=== PATIENT | male | born 1970 | race African-American/Black ===

== ENCOUNTER 2016-02-14 13:55 | Inpatient (IN) | payer OTHER ==
[2016-02-14 14:16] VITALS: BMI 25.8
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
[2016-02-14] MEDS ORDERED: chlordiazePOXIDE HCL 25 MG CAPSULE PO ONE (15:38)
[2016-02-14] MEDS ORDERED: chlordiazePOXIDE HCL 25 MG CAPSULE PO PRN (15:38)
[2016-02-14] MEDS ORDERED: hydrOXYzine PAMOATE 25 MG CAPSULE (FP) PO PRN (15:39)
[2016-02-14] MEDS ORDERED: MENTHOL/PHENOL 1 EACH UD MM PRN (15:39)
[2016-02-14] MEDS ORDERED: ACETAMINOPHEN 325 MG TABLET (FP) PO PRN (15:39)
[2016-02-14] MEDS ORDERED: MAGNESIUM HYDROX 2400MG/30ML ORAL SUSPENSION 30 ML CUP PO PRN (15:39)
[2016-02-14] MEDS ORDERED: MAGNESIUM CITRATE 300 ML BOTTLE PO PRN (15:39)
[2016-02-14] MEDS ORDERED: MAG HYDROX/AL HYDROX/SIMETH 30 ML UNIT-DOSE CUP PO PRN (15:39)
[2016-02-14] MEDS ORDERED: P-EPHED 60MG/TRIPROLIDI 2.5MG TABLET PO PRN (15:39)
[2016-02-14] MEDS ORDERED: LOPERAMIDE HCL 2 MG CAPSULE PO PRN (15:39)
[2016-02-14] MEDS ORDERED: IBUPROFEN 400 MG TABLET (FP) PO PRN (15:39)
[2016-02-14] MEDS ORDERED: guaiFENesin/D-METHORPHAN HB 10 ML UNIT-DOSE CUPS PO PRN (15:39)
[2016-02-14] MEDS: chlordiazePOXIDE HCL 25 MG CAPSULE PO SCH ×2 (16:47→22:47)
[2016-02-14] MEDS: NICOTINE 21 MG/24 HOURS TOPICAL PATCH TD SCH (16:49)
[2016-02-14 18:53] LABS: URINE APPEARANCE CLEAR; URINE BILIRUBIN NEGATIVE (NEGATIVE); URINE BLOOD NEGATIVE (NEGATIVE); URINE COLOR YELLOW; URINE GLUCOSE (UA) NEGATIVE (NEGATIVE); URINE KETONE NEGATIVE (NEGATIVE); URINE LEUK ESTERASE NEGATIVE (NEGATIVE); URINE NITRITE NEGATIVE (NEGATIVE); URINE PROTEIN NEGATIVE (NEGATIVE); URINE UROBILINOGEN 4.0 E.U/dl E.U./dl (0.2-1.0)
[2016-02-14] MEDS: THIAMINE HCL 100 MG TABLET (FP) PO SCH (22:46)
[2016-02-14] MEDS: diphenhydrAMINE HCL 50 MG CAPSULE PO PRN (22:47)
[2016-02-15] MEDS: chlordiazePOXIDE HCL 25 MG CAPSULE PO SCH ×4 (06:06→22:22)
[2016-02-15 10:10] LABS: MEAN CELL VOLUME 102.9 fl (80-96); MEAN PLT VOLUME 9.9 fl (7.5-11.1); PLATELET COUNT 95 K/MM3 (134-434); RDW 14.3 % (11.9-15.9); WHITE BLOOD COUNT 3.8 K/mm3 (4.0-10.0)
[2016-02-15 10:29] LABS: ALBUMIN 2.6 g/dl (3.4-5.0); ALK PHOS 223 U/L (45-117); ANION GAP 8 (8-16); CALCIUM 8.2 mg/dL (8.5-10.1); CO2 28 mmol/L (21-32); CREATININE 0.8 mg/dL (0.7-1.3); GLUCOSE,RANDOM 88 mg/dL (74-106); SGOT/AST 47 U/L (15-37); SGPT/ALT 33 U/L (12-78); TOT PROT 6.4 g/dl (6.4-8.2)
[2016-02-15] MEDS: PRENATAL VITAMINS W/ FOLIC ACID TABLET (FP) PO SCH (10:42)
[2016-02-15] MEDS: EMTRICITAB/RILPIVIRINE/TENOFOV 1 EACH TABLET PO SCH (10:43)
[2016-02-15] MEDS: NICOTINE 21 MG/24 HOURS TOPICAL PATCH TD SCH (10:44)
--- NOTE | 2016-02-15 11:32 | PN ---
[facility] CIWA - CIWA Score Nausea/Vomitin-No Nausea/No Vomiting Muscle Tremors: 3 Anxiety: 4-Mod. Anxious/Guarded Agitation: 3 Paroxysmal Sweats: 3 Orientation: 0-Oriented Tacttile Disturbances: 0-None Auditory Disturbances: 0-None Visual Disturbances: 0-None Headache: 0-None Present CIWA-Ar Total Score: 13 S Progress Note (SOAP) Subjective: anxiety,tremors,sweating,interrupted sleep,restless Objective: 02/15/16 11:31 Vital Signs - 8 hr 02/15/16 10:19 Temperature 95.7 F L Pulse Rate 85 Respiratory 20 Rate Blood Pressure 143/94 Laboratory Last Values WBC 3.8 K/mm3 (4.0-10.0) L 02/15/16 06:30 RBC 3.48 M/mm3 (4.00-5.60) L 02/15/16 06:30 Hgb 12.2 GM/dL (11.7-16.9) 02/15/16 06:30 Hct 35.8 % (35.4-49) 02/15/16 06:30 MCV 102.9 fl (80-96) H 02/15/16 06:30 MCHC 34.0 g/dl (32.0-35.9) 02/15/16 06:30 RDW 14.3 % (11.9-15.9) 02/15/16 06:30 Plt Count 95 K/MM3 (134-434) L D 02/15/16 06:30 MPV 9.9 fl (7.5-11.1) 02/15/16 06:30 Sodium 143 mmol/L (136-145) 02/15/16 06:30 Potassium 3.4 mmol/L (3.5-5.1) L 02/15/16 06:30 Chloride 107 mmol/L (98-107) 02/15/16 06:30 Carbon Dioxide 28 mmol/L (21-32) 02/15/16 06:30 Anion Gap 8 (8-16) 02/15/16 06:30 BUN 7 mg/dL (7-18) D 02/15/16 06:30 Creatinine 0.8 mg/dL (0.7-1.3) 02/15/16 06:30 Creat Clearance w eGFR > 60 (>60) 02/15/16 06:30 Random Glucose 88 mg/dL (74-106) D 02/15/16 06:30 Calcium 8.2 mg/dL (8.5-10.1) L 02/15/16 06:30 Total Bilirubin 1.0 mg/dL (0.2-1.0) D 02/15/16 06:30 AST 47 U/L (15-37) H D 02/15/16 06:30 ALT 33 U/L (12-78) D 02/15/16 06:30 Alkaline Phosphatase 223 U/L (45-117) H 02/15/16 06:30 Total Protein 6.4 g/dl (6.4-8.2) 02/15/16 06:30 Albumin 2.6 g/dl (3.4-5.0) L 02/15/16 06:30 Urine Color Yellow 02/14/16 17:45 Urine Appearance Clear 02/14/16 17:45 Urine pH 9.0 (5.0-8.0) H 02/14/16 17:45 Ur Specific [place] 1.016 (1.001-1.035) 02/14/16 17:45 Urine Protein Negative (NEGATIVE) 02/14/16 17:45 Urine Glucose (UA) Negative (NEGATIVE) 02/14/16 17:45 Urine Ketones Negative (NEGATIVE) 02/14/16 17:45 Urine Blood Negative (NEGATIVE) 02/14/16 17:45 Urine Nitrite Negative (NEGATIVE) 02/14/16 17:45 Urine Bilirubin Negative (NEGATIVE) 02/14/16 17:45 Urine Urobilinogen 4.0 e.u/dl E.U./dl (0.2-1.0) 02/14/16 17:45 Ur Leukocyte Esterase Negative (NEGATIVE) 02/14/16 17:45 RPR Titer Nonreactive (NONREACTIVE) 02/15/16 06:30 labs noted,k+ 3.4 Assessment: 02/15/16 11:31 withdrawal sx. hypokalemia Plan: continue detox k-dur
--- NOTE | 2016-02-15 11:34 | PN ---
[facility] CIWA - CIWA Score Nausea/Vomitin-No Nausea/No Vomiting Muscle Tremors: 3 Anxiety: 4-Mod. Anxious/Guarded Agitation: 3 Paroxysmal Sweats: 3 Orientation: 0-Oriented Tacttile Disturbances: 0-None Auditory Disturbances: 0-None Visual Disturbances: 0-None Headache: 0-None Present CIWA-Ar Total Score: 13
[2016-02-15] MEDS: POTASSIUM CHLORIDE TABS 20 MEQ TABLET.ER (FP) PO SCH ×2 (12:20→22:24)
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
[2016-02-15] MEDS: risperiDONE 1 MG TABLET (FP) PO SCH (22:22)
[2016-02-15] MEDS: diphenhydrAMINE HCL 50 MG CAPSULE PO PRN (22:22)
[2016-02-15] MEDS: THIAMINE HCL 100 MG TABLET (FP) PO SCH (22:23)
[2016-02-16] MEDS: chlordiazePOXIDE HCL 25 MG CAPSULE PO SCH ×2 (05:45→10:36)
[2016-02-16] MEDS: PRENATAL VITAMINS W/ FOLIC ACID TABLET (FP) PO SCH (10:36)
[2016-02-16] MEDS: POTASSIUM CHLORIDE TABS 20 MEQ TABLET.ER (FP) PO SCH ×2 (10:37→22:18)
[2016-02-16] MEDS: NICOTINE 21 MG/24 HOURS TOPICAL PATCH TD SCH (10:37)
[2016-02-16] MEDS: EMTRICITAB/RILPIVIRINE/TENOFOV 1 EACH TABLET PO SCH (10:37)
--- NOTE | 2016-02-16 11:40 | PN ---
BHS Progress Note (SOAP) Subjective: ANXIETY,TREMORS,SWEATS. Objective: 02/16/16 11:40 Vital Signs Temperature 97.1 F L 02/16/16 09:50 Pulse Rate 88 02/16/16 09:50 Respiratory Rate 18 02/16/16 09:50 Blood Pressure 143/96 02/16/16 09:50 O2 Sat by Pulse Oximetry (%) Assessment: 02/16/16 11:40 WITHDRAWAL SX Plan: CONTINUE DETOX
[2016-02-16] MEDS: chlordiazePOXIDE 5 MG CAPSULE PO SCH ×2 (17:36→22:19)
--- NOTE | 2016-02-16 21:22 | PN ---
BHS Progress Note Note: RECEIVED NURSE CALL BP 145/91 CONTINUE DETOX
[2016-02-16] MEDS: THIAMINE HCL 100 MG TABLET (FP) PO SCH (22:18)
[2016-02-16] MEDS: risperiDONE 1 MG TABLET (FP) PO SCH (22:19)
[2016-02-17] MEDS: chlordiazePOXIDE 5 MG CAPSULE PO SCH ×2 (06:12→10:44)
--- NOTE | 2016-02-17 09:51 | PN ---
BHS Progress Note (SOAP) Subjective: ANXIETY,SWEATS/CHILLS,FATIGUE. Objective: 02/17/16 09:50 Vital Signs Temperature 98.2 F 02/16/16 22:57 Pulse Rate 94 H 02/16/16 22:57 Respiratory Rate 16 02/17/16 03:30 Blood Pressure 141/89 02/16/16 22:57 O2 Sat by Pulse Oximetry (%) Assessment: 02/17/16 09:50 WITHDRAWAL SX Plan: CONTINUE DETOX
--- NOTE | 2016-02-17 10:19 | EKG ---
Test Reason : Blood Pressure : / mmHG Vent. Rate : 080 BPM Atrial Rate : 080 BPM P-R Int : 142 ms QRS Dur : 096 ms QT Int : 394 ms P-R-T Axes : 060 062 039 degrees QTc Int : 454 ms NORMAL SINUS RHYTHM NORMAL ECG NO PREVIOUS ECGS AVAILABLE Confirmed by ADAIR PRADO, VINEET ([id number]) on 02/17/2016 10:18:50 AM Referred By: Confirmed By:VINEET BORRERO MD
[2016-02-17] MEDS: NICOTINE 21 MG/24 HOURS TOPICAL PATCH TD SCH (10:44)
[2016-02-17] MEDS: EMTRICITAB/RILPIVIRINE/TENOFOV 1 EACH TABLET PO SCH (10:44)
[2016-02-17] MEDS: POTASSIUM CHLORIDE TABS 20 MEQ TABLET.ER (FP) PO SCH ×2 (10:44→23:07)
[2016-02-17] MEDS: PRENATAL VITAMINS W/ FOLIC ACID TABLET (FP) PO SCH (10:44)
[2016-02-17] MEDS: chlordiazePOXIDE HCL 10 MG CAPSULE PO SCH ×2 (17:57→23:07)
[2016-02-17 22:26] VITALS: BP 146/90; PULSE 91; TEMP 97.6
[2016-02-17] MEDS: THIAMINE HCL 100 MG TABLET (FP) PO SCH (23:07)
[2016-02-17] MEDS: risperiDONE 1 MG TABLET (FP) PO SCH (23:07)
[2016-02-18] MEDS: chlordiazePOXIDE HCL 10 MG CAPSULE PO SCH ×2 (06:06→11:31)
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
[2016-02-18] MEDS: PRENATAL VITAMINS W/ FOLIC ACID TABLET (FP) PO SCH (11:30)
[2016-02-18] MEDS: POTASSIUM CHLORIDE TABS 20 MEQ TABLET.ER (FP) PO SCH (11:31)
[2016-02-18] MEDS: EMTRICITAB/RILPIVIRINE/TENOFOV 1 EACH TABLET PO SCH (11:31)
[2016-02-18] MEDS: NICOTINE 21 MG/24 HOURS TOPICAL PATCH TD SCH (11:31)
== END 2016-02-18 11:24 | disposition other institution (70) | DRG 774 ==
LOC: YASAS 13:55 → Y3N 14:56
PROVIDERS: ADMIT Internal Medicine; ATTEND Internal Medicine
PROC: HZ2ZZZZ Detoxification Services for Substance Abuse Treatment (ICD-10-PCS; principal; 2016-02-14)
DX: F10.230 Alcohol dependence with withdrawal, uncomplicated (principal); F14.20 Cocaine dependence, uncomplicated; F12.20 Cannabis dependence, uncomplicated; F17.210 Nicotine dependence, cigarettes, uncomplicated; F19.24 Other psychoactive substance dependence with psychoactive substance-induced mood disorder; F25.9 Schizoaffective disorder, unspecified; Z21 Asymptomatic human immunodeficiency virus [HIV] infection status; R21 Rash and other nonspecific skin eruption; E87.6 Hypokalemia; I89.0 Lymphedema, not elsewhere classified; Z87.898 Personal history of other specified conditions; Z91.5 Personal history of self-harm
CPT/HCPCS: 36415; 80053; 81003; 85027; 86593; 93005; 93010; J2794

== ENCOUNTER 2016-02-18 11:55 | Inpatient (IN) | payer OTHER ==
[2016-02-18] MEDS ORDERED: P-EPHED 60MG/TRIPROLIDI 2.5MG TABLET PO PRN (14:10)
[2016-02-18] MEDS ORDERED: guaiFENesin/D-METHORPHAN HB 10 ML UNIT-DOSE CUPS PO PRN (14:10)
[2016-02-18] MEDS ORDERED: MENTHOL/PHENOL 1 EACH UD MM PRN (14:10)
[2016-02-18] MEDS ORDERED: ACETAMINOPHEN 325 MG TABLET (FP) PO PRN (14:10)
[2016-02-18] MEDS ORDERED: MAGNESIUM CITRATE 300 ML BOTTLE PO PRN (14:10)
[2016-02-18] MEDS ORDERED: MAGNESIUM HYDROX 2400MG/30ML ORAL SUSPENSION 30 ML CUP PO PRN (14:10)
[2016-02-18] MEDS ORDERED: MAG HYDROX/AL HYDROX/SIMETH 30 ML UNIT-DOSE CUP PO PRN (14:10)
[2016-02-18] MEDS ORDERED: LOPERAMIDE HCL 2 MG CAPSULE PO PRN (14:10)
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
--- NOTE | 2016-02-18 16:19 | HP ---
OSMIN PRADO Rehab Assess/Revision - Admission History [facility] Date of Admission to Rehab: 02/18/16 - Findings Detox History & Physical reviewed: Yes Concur with findings: Yes Comments/Additional Findings: trasnferred from detox to rehab admission as per protocol
[2016-02-18] MEDS: THIAMINE HCL 100 MG TABLET (FP) PO SCH (21:26)
[2016-02-18] MEDS: risperiDONE 1 MG TABLET (FP) PO SCH (21:26)
[2016-02-18] MEDS: diphenhydrAMINE HCL 50 MG CAPSULE PO PRN (21:27)
[2016-02-19] MEDS: ATOVAQUONE 750 MG/5 ML (UNIT-DOSE PACKAGING) PO SCH (08:59)
[2016-02-19] MEDS: PRENATAL VITAMINS W/ FOLIC ACID TABLET (FP) PO SCH (09:33)
[2016-02-19] MEDS: ESCITALOPRAM OXALATE 10 MG TABLET (FP) PO SCH (09:34)
[2016-02-19] MEDS: EMTRICITAB/RILPIVIRINE/TENOFOV 1 EACH TABLET PO SCH (09:34)
[2016-02-19] MEDS ORDERED: PATIENT'S OWN MEDICATION (NON-FORMULARY) (Dolutegravir Sodium 50 MG) PO SCH (10:00)
[2016-02-19] MEDS: THIAMINE HCL 100 MG TABLET (FP) PO SCH (21:22)
[2016-02-19] MEDS: risperiDONE 1 MG TABLET (FP) PO SCH (21:22)
[2016-02-19] MEDS: diphenhydrAMINE HCL 50 MG CAPSULE PO PRN (21:23)
[2016-02-20] MEDS: ATOVAQUONE 750 MG/5 ML (UNIT-DOSE PACKAGING) PO SCH (07:07)
[2016-02-20] MEDS: PRENATAL VITAMINS W/ FOLIC ACID TABLET (FP) PO SCH (09:58)
[2016-02-20] MEDS: EMTRICITAB/RILPIVIRINE/TENOFOV 1 EACH TABLET PO SCH (09:58)
[2016-02-20] MEDS: ESCITALOPRAM OXALATE 10 MG TABLET (FP) PO SCH (09:58)
[2016-02-20] MEDS: risperiDONE 1 MG TABLET (FP) PO SCH (21:16)
[2016-02-20] MEDS: THIAMINE HCL 100 MG TABLET (FP) PO SCH (21:16)
[2016-02-20] MEDS: diphenhydrAMINE HCL 50 MG CAPSULE PO PRN (21:17)
[2016-02-21] MEDS: ATOVAQUONE 750 MG/5 ML (UNIT-DOSE PACKAGING) PO SCH (07:16)
[2016-02-21] MEDS: EMTRICITAB/RILPIVIRINE/TENOFOV 1 EACH TABLET PO SCH (10:24)
[2016-02-21] MEDS: PRENATAL VITAMINS W/ FOLIC ACID TABLET (FP) PO SCH (10:24)
[2016-02-21] MEDS: ESCITALOPRAM OXALATE 10 MG TABLET (FP) PO SCH (10:25)
[2016-02-21] MEDS: IBUPROFEN 400 MG TABLET (FP) PO PRN (10:26)
[2016-02-21] MEDS: diphenhydrAMINE HCL 50 MG CAPSULE PO PRN (21:24)
[2016-02-21] MEDS: risperiDONE 1 MG TABLET (FP) PO SCH (21:24)
[2016-02-21] MEDS: THIAMINE HCL 100 MG TABLET (FP) PO SCH (21:24)
[2016-02-22] MEDS: ATOVAQUONE 750 MG/5 ML (UNIT-DOSE PACKAGING) PO SCH (07:52)
[2016-02-22] MEDS: PRENATAL VITAMINS W/ FOLIC ACID TABLET (FP) PO SCH (10:16)
[2016-02-22] MEDS: EMTRICITAB/RILPIVIRINE/TENOFOV 1 EACH TABLET PO SCH (10:17)
[2016-02-22] MEDS: ESCITALOPRAM OXALATE 10 MG TABLET (FP) PO SCH (10:17)
[2016-02-22] MEDS: risperiDONE 1 MG TABLET (FP) PO SCH (21:28)
[2016-02-22] MEDS: THIAMINE HCL 100 MG TABLET (FP) PO SCH (21:28)
[2016-02-22] MEDS: diphenhydrAMINE HCL 50 MG CAPSULE PO PRN (21:29)
[2016-02-23] MEDS: ATOVAQUONE 750 MG/5 ML (UNIT-DOSE PACKAGING) PO SCH (07:04)
[2016-02-23] MEDS: PRENATAL VITAMINS W/ FOLIC ACID TABLET (FP) PO SCH (10:46)
[2016-02-23] MEDS: EMTRICITAB/RILPIVIRINE/TENOFOV 1 EACH TABLET PO SCH (10:46)
[2016-02-23] MEDS: ESCITALOPRAM OXALATE 10 MG TABLET (FP) PO SCH (10:46)
[2016-02-23] MEDS: THIAMINE HCL 100 MG TABLET (FP) PO SCH (21:15)
[2016-02-23] MEDS: risperiDONE 1 MG TABLET (FP) PO SCH (21:15)
[2016-02-23] MEDS: diphenhydrAMINE HCL 50 MG CAPSULE PO PRN (21:15)
[2016-02-24] MEDS: ATOVAQUONE 750 MG/5 ML (UNIT-DOSE PACKAGING) PO SCH (08:59)
[2016-02-24] MEDS: ESCITALOPRAM OXALATE 10 MG TABLET (FP) PO SCH (10:23)
[2016-02-24] MEDS: EMTRICITAB/RILPIVIRINE/TENOFOV 1 EACH TABLET PO SCH (10:23)
[2016-02-24] MEDS: PRENATAL VITAMINS W/ FOLIC ACID TABLET (FP) PO SCH (10:23)
[2016-02-24] MEDS: risperiDONE 1 MG TABLET (FP) PO SCH (21:36)
[2016-02-24] MEDS: diphenhydrAMINE HCL 50 MG CAPSULE PO PRN (21:36)
[2016-02-24] MEDS: THIAMINE HCL 100 MG TABLET (FP) PO SCH (21:36)
[2016-02-25] MEDS: ATOVAQUONE 750 MG/5 ML (UNIT-DOSE PACKAGING) PO SCH (08:27)
[2016-02-25] MEDS: EMTRICITAB/RILPIVIRINE/TENOFOV 1 EACH TABLET PO SCH (10:35)
[2016-02-25] MEDS: PRENATAL VITAMINS W/ FOLIC ACID TABLET (FP) PO SCH (10:35)
[2016-02-25] MEDS: ESCITALOPRAM OXALATE 10 MG TABLET (FP) PO SCH (10:35)
[2016-02-25] MEDS: IBUPROFEN 400 MG TABLET (FP) PO PRN (10:36)
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
[2016-02-25] MEDS: risperiDONE 1 MG TABLET (FP) PO SCH (21:16)
[2016-02-25] MEDS: diphenhydrAMINE HCL 50 MG CAPSULE PO PRN (21:16)
[2016-02-25] MEDS: THIAMINE HCL 100 MG TABLET (FP) PO SCH (21:16)
[2016-02-26] MEDS: ATOVAQUONE 750 MG/5 ML (UNIT-DOSE PACKAGING) PO SCH (07:03)
[2016-02-26 07:16] VITALS: BP 144/92; PULSE 77; TEMP 97.4
[2016-02-26] MEDS: PRENATAL VITAMINS W/ FOLIC ACID TABLET (FP) PO SCH (09:44)
[2016-02-26] MEDS: EMTRICITAB/RILPIVIRINE/TENOFOV 1 EACH TABLET PO SCH (09:44)
[2016-02-26] MEDS: ESCITALOPRAM OXALATE 10 MG TABLET (FP) PO SCH (09:44)
--- NOTE | 2016-02-26 13:49 | PN ---
Psychiatric Progress Note Vital Signs: Vital Signs Period Temp Pulse Resp BP Sys/Vieyra Pulse Ox Last 24 Hr 97.4 F 77 18-18 144/92 Date of Session: 02/26/16 Chief Complaint:: discharge visit HPI: Patient is addressed alcohol, cocaine,caanabis dependence comorbid Schizoaffective disorder. ROS: HIV +, HTN, lymphedema Right leg, h/o frarture of left mandible and ortosurgery on Right leg(jesus in place). Current Side Effect: No Lab tests ordered: No Lab tests reviewed: Yes Provider note:: Patient was discharged today due to the needs for follow up care at [facility] for evaluation of his right leg/foot edema and removal of sutures, then follow up with his outpatient treatment program at [facility]. Scripts for Lexapro electronically transferred to the pharmacy, patient was encouraged to f/u with his medical appointment and take medication as directed. Patient is stable for d/c. Total face to face time:: 30 Mental Status Exam - Mental Status Exam Alert and Oriented to: Time, Place, Person Cognitive Function: Grossly Intact Patient Appearance: Well Groomed Mood: Hopeful Affect: Mood Congruent Patient Behavior: Appropriate, Cooperative Speech Pattern: Clear, Appropriate Voice Loudness: Normal Thought Process: Intact, Goal Oriented Thought Disorder: Not Present Hallucinations: Denies Suicidal Ideation: Denies Homicidal Ideation: Denies Insight/Judgement: Fair Sleep: Fair Appetite: Fair Muscle strength/Tone: Normal Gait/Station: Normal Psychiatric Treatment Plan - Problem List (3) Cocaine dependence Qualifiers: Substance use status: uncomplicated Qualified Code(s): F14.20 - Cocaine dependence, uncomplicated
== END 2016-02-26 10:00 | disposition short-term general hospital (02) | DRG 772 ==
LOC: YASAS 11:55 → Y5N 12:08
PROVIDERS: ADMIT Psychiatry & Neurology Psychiatry; ATTEND Psychiatry & Neurology Psychiatry
PROC: HZ42ZZZ Group Counseling for Substance Abuse Treatment, Cognitive-Behavioral (ICD-10-PCS; principal; 2016-02-18)
DX: F10.20 Alcohol dependence, uncomplicated (principal); F14.20 Cocaine dependence, uncomplicated; F12.20 Cannabis dependence, uncomplicated; F25.1 Schizoaffective disorder, depressive type; Z21 Asymptomatic human immunodeficiency virus [HIV] infection status; I10 Essential (primary) hypertension; I89.0 Lymphedema, not elsewhere classified; M79.89 Other specified soft tissue disorders
CPT/HCPCS: J2794

== ENCOUNTER 2016-05-23 09:59 | Inpatient (IN) | payer OTHER ==
[2016-05-23 11:52] VITALS: BMI 28.7
--- NOTE | 2016-05-23 13:09 | HP ---
CIWA Score - CIWA Score Nausea/Vomitin-Int. Nausea w/Dry Heave (DIARRHEA) Muscle Tremors: 4-Moderate,w/Arms Extend Anxiety: 4-Mod. Anxious/Guarded Agitation: 4-Moderately Restless Paroxysmal Sweats: 1-Minimal Palms Moist Orientation: 0-Oriented Tacttile Disturbances: 3-Moderate Itch/Numb/Burn Auditory Disturbances: 0-None Visual Disturbances: 0-None Headache: 1-Very Mild CIWA-Ar Total Score: 21 Admission ROS S - HPI Chief Complaint: DETOX TX FPR ALCOHOL DEPENDENCE Allergies/Adverse Reactions: Allergies Allergy/AdvReac Type Severity Reaction Status Date / Time acetaminophen [From Tylenol] Allergy Severe Swelling Verified 02/18/16 12:28 vancomycin Allergy Severe Itching Verified 02/18/16 12:28 History of Present Illness: 45 Y/O AA/MALE WITH A HX OF ALCOHOL AND COCAINE DEPENDENCE SEEKING DETOX TX. Exam Limitations: No Limitations, Intoxication (JERRY= 0.198) - Ebola screening Have you traveled outside of the country in the last 21 days: No Have you had contact with anyone from an Ebola affected area: No Have you been sick,other than usual withdrawal symptoms: No Do you have a fever: No - Review of Systems Constitutional: Chills, Night Sweats, Changes in sleep EENT: reports: Blurred Vision (WEARS GLASSES), Dental Problems Respiratory: reports: No Symptoms reported Cardiac: reports: Lightheadedness GI: reports: Diarrhea, Nausea, Poor Fluid Intake, Vomiting : reports: Frequency Musculoskeletal: reports: Joint Pain, Other (RIGHT LEG PAIN DUE TO ELEPHANTITIS) Integumentary: reports: Lesions (PSORIASIS), Rash (PSORIASIS) Neuro: reports: Headache, Tremors, Unsteady Gait, Dizziness Endocrine: reports: No Symptoms Reported Hematology: reports: No Symptoms Reported Psychiatric: reports: Orientated x3, Anxious Other Systems: Reviewed and Negative Patient History - Patient Medical History Hx Anemia: No Hx Asthma: No Hx Chronic Obstructive Pulmonary Disease (COPD): No Hx Cancer: No Hx Cardiac Disorders: No Hx Hypertension: Yes (NORVASC 10 MG DAILY) Hx Hypercholesterolemia: No Hx Pacemaker: No HX Cerebrovascular Accident: No Hx Seizures: No Hx Dementia: No Hx Diabetes: No Hx Gastrointestinal Disorders: No Hx Liver Disease: No Hx Genitourinary Disorders: No Hx Sexually Transmitted Disorders: No Hx Renal Disease (ESRD): No Hx Thyroid Disease: No Hx Human Immunodeficiency Virus (HIV): Yes (SINCE 2004;WAS ON TIVICAY BUT STOPPED;NEW WORKUP RESULT PENDING.) Hx Hepatitis C: No Hx Depression: Yes (ON MED) Hx Suicide Attempt: No (DENIES) Hx Bipolar Disorder: No Hx Schizophrenia: No - Patient Surgical History Past Surgical History: Yes Hx Neurologic Surgery: No Hx Cataract Extraction: No Hx Cardiac Surgery: No Hx Lung Surgery: No Hx Breast Surgery: No Hx Breast Biopsy: No Hx Abdominal Surgery: No Hx Appendectomy: No Hx Cholecystectomy: No Hx Genitourinary Surgery: No Hx Section: No Hx Orthopedic Surgery: Yes (1999- rt leg jesus ) Other Surgical History: Fx mandible LEFT Anesthesia Reaction: No - PPD History Previous Implant?: Yes Documented Results: Negative w/proof Implanted On Prior [facility] Admission?: Yes Date: 02/16/16 Results: O MM PPD to be Administered?: No - Reproductive History Patient is a Female of Child Bearing Age (11 -55 yrs old): No (MALE) - Smoking Cessation Smoking history: Current every day smoker Have you smoked in the past 12 months: Yes Aproximately how many cigarettes per day: 2 Cigars Per Day: 0 Hx Chewing Tobacco Use: No Initiated information on smoking cessation: Yes 'Breaking Loose' booklet given: 05/23/16 - Substance & Tx. History Hx Alcohol Use: Yes (BEER/VODKA) Hx Substance Use: Yes (COCAINE) Substance Use Type: Alcohol, Cocaine Hx Substance Use Treatment: Yes ([facility]) - Substances Abused Alcohol Route: Oral Frequency: Daily Amount used: vodka(2 pints)/beer-6 pk 12 oz cans) Age of first use: 19 Date of Last Use: 05/23/16 Cocaine Route: Smoking Frequency: Daily Amount used: $30-40 Age of first use: 25 Date of Last Use: 05/22/16 Family Disease History - Family Disease History Family Disease History: Diabetes: Mother ( age 56 ) Admission Physical Exam S - Vital Signs Vital Signs: Vital Signs - 24 hr 05/23/16 11:50 Temperature 97 F L Pulse Rate 93 H Respiratory 20 Rate Blood Pressure 142/79 - Physical General Appearance: Yes: Moderate Distress, Alcohol on Breath, Intoxicated, Irritable, Anxious HEENTM: Yes: EOMI, Normocephalic, JAJA, Pharynx Normal Respiratory: Yes: Chest Non-Tender, Lungs Clear, Normal Breath Sounds, No Respiratory Distress Neck: Yes: Supple, Trachea in good position Breast: Yes: Breast Exam Deferred Cardiology: Yes: Regular Rhythm, Regular Rate, S1, S2 Abdominal: Yes: Normal Bowel Sounds, Non Tender, Soft Genitourinary: Yes: Other (N/C) Musculoskeletal: Yes: full range of Motion, Gait Steady Extremities: Yes: Normal Range of Motion, Non-Tender, Tremors, Swelling (RIGHT LEG CHRONIC SWELLING DUE TO ELEPHANTIASIS SINCE 2009) 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 NML intact, Fully Oriented, Alert Integumentary: Yes: Dry, Warm, Rash (PSORIATIC RASH ON LEFT LOWER EXTREMITY) Lymphatic: Yes: Within Normal Limits - Diagnostic (1) Alcohol dependence with uncomplicated withdrawal Current Visit: Yes Status: Acute (2) Elephantiasis (nonfilarial) Current Visit: Yes Status: Chronic (3) HIV (human immunodeficiency virus infection) Current Visit: Yes Status: Chronic (4) Lymphedema of extremity Current Visit: Yes Status: Chronic (5) Nicotine dependence Current Visit: Yes Status: Acute Qualifiers: Nicotine product type: cigarettes Substance use status: in withdrawal Qualified Code(s): F17.213 - Nicotine dependence, cigarettes, with withdrawal (6) Rash, skin Current Visit: Yes Status: Chronic Comment: PSORIASIS LEFT LOWER LG (7) Cocaine dependence, uncomplicated Current Visit: Yes Status: Acute Cleared for Admission [facility] - Detox or Rehab [facility] Level of Care: Medically Managed Detox Regimen/Protocol: Librium [facility] Breath Alcohol Content Breath Alcohol Content: 0.198 Urine Drug Screen - Results Drug Screen Negative: No Urine Drug Screen Results: WAN-Cocaine
[2016-05-23] MEDS ORDERED: MAG HYDROX/AL HYDROX/SIMETH 30 ML UNIT-DOSE CUP PO PRN (14:01)
[2016-05-23] MEDS ORDERED: MAGNESIUM HYDROX 2400MG/30ML ORAL SUSPENSION 30 ML CUP PO PRN (14:01)
[2016-05-23] MEDS ORDERED: MENTHOL/PHENOL 1 EACH UD MM PRN (14:01)
[2016-05-23] MEDS ORDERED: P-EPHED 60MG/TRIPROLIDI 2.5MG TABLET PO PRN (14:01)
[2016-05-23] MEDS ORDERED: MAGNESIUM CITRATE 300 ML BOTTLE PO PRN (14:01)
[2016-05-23] MEDS ORDERED: IBUPROFEN 400 MG TABLET (FP) PO PRN (14:01)
[2016-05-23] MEDS ORDERED: NICOTINE POLACRILEX 2 MG GUM BC PRN (14:01)
[2016-05-23] MEDS ORDERED: guaiFENesin/D-METHORPHAN HB 10 ML UNIT-DOSE CUPS PO PRN (14:01)
[2016-05-23] MEDS ORDERED: LOPERAMIDE HCL 2 MG CAPSULE PO PRN (14:01)
[2016-05-23] MEDS ORDERED: chlordiazePOXIDE HCL 25 MG CAPSULE PO PRN (14:01)
[2016-05-23] MEDS ORDERED: hydrOXYzine PAMOATE 25 MG CAPSULE (FP) PO PRN (14:01)
[2016-05-23] MEDS: amLODIPine BESYLATE 10 MG TABLET (FP) PO SCH (15:03)
[2016-05-23] MEDS ORDERED: chlordiazePOXIDE HCL 25 MG CAPSULE PO ONE (15:15)
[2016-05-23] MEDS: TRIAMCINOLONE ACET 0.025% OINTMENT 15 GM TUBE TP SCH ×2 (15:38→22:44)
[2016-05-23] MEDS: NICOTINE 14 MG/24 HOURS TOPICAL PATCH TD SCH (15:38)
--- NOTE | 2016-05-23 17:10 | CONSULT ---
[facility] Psychiatric Consult - Data Date of interview: 05/23/16 Admission source: [facility] Identifying data: Another admission to [facility] for this 45 y/o AA male seeking detox treatment on for alcohol and cocaine dependence.Patient is single,a father of two (reported this time),domiciled,unemployed and supported on SSI benefits. Substance Abuse History: - Smoking Cessation. Smoking history: Current every day smoker. Have you smoked in the past 12 months: Yes. Aproximately how many cigarettes per day: 2. Cigars Per Day: 0. Hx Chewing Tobacco Use: No. Initiated information on smoking cessation: Yes. 'Breaking Loose' booklet given : 05/23/16. - Substance & Tx. History. Hx Alcohol Use: Yes (BEER/VODKA). Hx Substance Use: Yes (COCAINE). Substance Use Type: Alcohol, Cocaine. Hx Substance Use Treatment: Yes ([facility]DETOX). - Substances Abused. Alcohol. Route: Oral. Frequency: Daily. Amount used: vodka(2 pints)/beer-6 pk 12 oz cans). Age of first use: 19. Date of Last Use: 05/23/16. Cocaine. Route: Smoking. Frequency: Daily. Amount used: $30-40. Age of first use: 25. Date of Last Use: 05/22/16. Confirmed by patient. Medical History: HIV infection since 2004,hypertension,lymphedema (right leg), history of fracture of left mandible and orthosurgery on right leg (jesus in place ). Psychiatric History: [facility]Diagnosed with Schizoaffective Disorder.Mr Garcia indicates that he has been lost to follow up." I get risperdal when I go there." Review of pharmacy claims shows filled scripts for risperdal 2 mg po bid + remeron 15 mg/hs on 05/12/16 @ [email or web address] by provider Winter Jessica.Remote history of a suicide attempt via overdose with medications ( years ago). Physical/Sexual Abuse/Trauma History: Patient denies. Additional Comment: Urine Drug Screen Results: WAN-Cocaine.Noted. Mental Status Exam - Mental Status Exam Alert and Oriented to: Time, Place, Person Cognitive Function: Grossly Intact Patient Appearance: Well Groomed Mood: Withdrawn Affect: Constricted Patient Behavior: Sedated (light sedation), Fatigued, Cooperative Speech Pattern: Clear Voice Loudness: Normal Thought Process: Goal Oriented Thought Disorder: Not Present Hallucinations: Denies Suicidal Ideation: Denies Homicidal Ideation: Denies Insight/Judgement: Poor Sleep: Poorly, Difficulty falling asleep Appetite: Good Muscle strength/Tone: Normal Gait/Station: Normal Psychiatric Findings - Problem List ([place] 1, 2,3) (1) Alcohol dependence with uncomplicated withdrawal Status: Chronic (2) Cocaine dependence, uncomplicated Status: Chronic (3) Nicotine dependence Status: Chronic Qualifiers: Nicotine product type: cigarettes Substance use status: in withdrawal Qualified Code(s): F17.213 - Nicotine dependence, cigarettes, with withdrawal (4) Drug-induced mood disorder Status: Acute (5) Schizoaffective disorder, depressive type Status: Chronic (6) Elephantiasis (nonfilarial) Status: Chronic (7) HIV (human immunodeficiency virus infection) Status: Chronic (8) Insomnia Status: Acute - Initial Treatment Plan Initial Treatment Plan: Psychoeducation.Detoxification.Medications : remeron 15 mg po hs + risperdal 1 mg po bid.Side effects/benefits discussed with patient.Made aware of risk of abnormal involontary movements,dystonias, dyskinesias,akathisia,akinesia,galactorrhea,sexual impotence,gynecomastia, weight gain (risperdal) and sedation,orthostasis (mirtazapine).Patient reports no prior history of adverse events from these two drugs.He agrees to resume care with remeron and risperidone.Observation.
--- NOTE | 2016-05-23 17:31 | EKG ---
Test Reason : Blood Pressure : / mmHG Vent. Rate : 081 BPM Atrial Rate : 081 BPM P-R Int : 152 ms QRS Dur : 088 ms QT Int : 408 ms P-R-T Axes : 059 080 051 degrees QTc Int : 473 ms NORMAL SINUS RHYTHM NORMAL ECG WHEN COMPARED WITH ECG OF 14-FEB-2016 15:46, NO SIGNIFICANT CHANGE WAS FOUND Confirmed by LEYLA WELCH MD ([id number]) on 05/23/2016 5:31:16 PM Referred By: Confirmed By:LEYLA WELCH MD
[2016-05-23] MEDS: chlordiazePOXIDE HCL 25 MG CAPSULE PO SCH ×2 (17:53→22:44)
[2016-05-23] MEDS: ATOVAQUONE 750 MG/5 ML (UNIT-DOSE PACKAGING) PO SCH (17:54)
[2016-05-23 19:47] LABS: URINE APPEARANCE CLEAR; URINE BILIRUBIN NEGATIVE (NEGATIVE); URINE BLOOD NEGATIVE (NEGATIVE); URINE COLOR YELLOW; URINE GLUCOSE (UA) NEGATIVE (NEGATIVE); URINE KETONE NEGATIVE (NEGATIVE); URINE LEUK ESTERASE NEGATIVE (NEGATIVE); URINE NITRITE NEGATIVE (NEGATIVE); URINE PROTEIN NEGATIVE (NEGATIVE); URINE UROBILINOGEN NEGATIVE E.U./dl (0.2-1.0)
[2016-05-23] MEDS: THIAMINE HCL 100 MG TABLET (FP) PO SCH (22:44)
[2016-05-23] MEDS: MIRTAZAPINE 15 MG TABLET (FP) PO SCH (22:45)
[2016-05-23] MEDS: diphenhydrAMINE HCL 50 MG CAPSULE PO PRN (22:45)
[2016-05-24] MEDS: TRIAMCINOLONE ACET 0.025% OINTMENT 15 GM TUBE TP SCH ×3 (05:39→22:33)
[2016-05-24] MEDS: chlordiazePOXIDE HCL 25 MG CAPSULE PO SCH ×4 (05:39→22:32)
[2016-05-24] MEDS: ATOVAQUONE 750 MG/5 ML (UNIT-DOSE PACKAGING) PO SCH ×2 (07:38→17:26)
[2016-05-24 10:00] LABS: MCH 32.7 pg (25.7-33.7); MEAN CELL VOLUME 96.2 fl (80-96); MEAN PLT VOLUME 10.7 fl (7.5-11.1); PLATELET COUNT 99 K/MM3 (134-434); RDW 15.5 % (11.9-15.9); WHITE BLOOD COUNT 3.3 K/mm3 (4.0-10.0)
[2016-05-24 10:42] LABS: ALBUMIN 3.3 g/dl (3.4-5.0); ALK PHOS 224 U/L (45-117); ANION GAP 10 (8-16); BILIRUBIN,TOTAL 0.6 mg/dL (0.2-1.0); CALCIUM 8.2 mg/dL (8.5-10.1); CO2 24 mmol/L (21-32); COCKROFT - GAULT 149.62; CREATININE 0.8 mg/dL (0.7-1.3); GLUCOSE,RANDOM 86 mg/dL (74-106); SGOT/AST 78 U/L (15-37); SGPT/ALT 48 U/L (12-78); TOT PROT 8.1 g/dl (6.4-8.2)
[2016-05-24] MEDS: amLODIPine BESYLATE 10 MG TABLET (FP) PO SCH (10:43)
[2016-05-24] MEDS: NICOTINE 14 MG/24 HOURS TOPICAL PATCH TD SCH (10:43)
[2016-05-24] MEDS: PRENATAL VITAMINS W/ FOLIC ACID TABLET (FP) PO SCH (10:43)
--- NOTE | 2016-05-24 12:52 | PN ---
S CIWA - CIWA Score Nausea/Vomitin-No Nausea/No Vomiting Muscle Tremors: 4-Moderate,w/Arms Extend Anxiety: 4-Mod. Anxious/Guarded Agitation: 3 Paroxysmal Sweats: 3 Orientation: 0-Oriented Tacttile Disturbances: 0-None Auditory Disturbances: 0-None Visual Disturbances: 0-None Headache: 0-None Present CIWA-Ar Total Score: 14 BHS Progress Note (SOAP) Subjective: Sweating,interrupted sleep,restless,tremors,anxiety Objective: 05/24/16 12:50 Vital Signs - 8 hr 05/24/16 05/24/16 06:23 09:14 Temperature 97.1 F L 96.9 F L Pulse Rate 84 88 Respiratory 16 18 Rate Blood Pressure 148/95 139/90 Laboratory Tests 05/23/16 05/24/16 05/24/16 14:00 06:00 06:00 WBC 3.3 L RBC 3.83 L Hgb 12.5 Hct 36.9 MCV 96.2 H MCHC 34.0 RDW 15.5 Plt Count 99 L MPV 10.7 Sodium 139 Potassium 3.8 Chloride 105 Carbon Dioxide 24 Anion Gap 10 BUN 9 D Creatinine 0.8 Creat Clearance w eGFR > 60 Random Glucose 86 Calcium 8.2 L Total Bilirubin 0.6 D AST 78 H D ALT 48 D Alkaline Phosphatase 224 H Total Protein 8.1 D Albumin 3.3 L D Urine Color Yellow Urine Appearance Clear Urine pH 6.0 D Ur Specific [place] 1.013 Urine Protein Negative Urine Glucose (UA) Negative Urine Ketones Negative Urine Blood Negative Urine Nitrite Negative Urine Bilirubin Negative Urine Urobilinogen Negative Ur Leukocyte Esterase Negative labs noted Assessment: 05/24/16 12:51 Withdrawal sx. Plan: Continue detox
[2016-05-24] MEDS: MIRTAZAPINE 15 MG TABLET (FP) PO SCH (22:32)
[2016-05-24] MEDS: diphenhydrAMINE HCL 50 MG CAPSULE PO PRN (22:32)
[2016-05-24] MEDS: THIAMINE HCL 100 MG TABLET (FP) PO SCH (22:32)
[2016-05-25] MEDS: TRIAMCINOLONE ACET 0.025% OINTMENT 15 GM TUBE TP SCH ×3 (05:22→23:01)
[2016-05-25] MEDS: chlordiazePOXIDE HCL 25 MG CAPSULE PO SCH ×2 (05:23→10:45)
[2016-05-25] MEDS: ATOVAQUONE 750 MG/5 ML (UNIT-DOSE PACKAGING) PO SCH ×2 (07:11→17:15)
[2016-05-25] MEDS: amLODIPine BESYLATE 10 MG TABLET (FP) PO SCH (10:45)
[2016-05-25] MEDS: NICOTINE 14 MG/24 HOURS TOPICAL PATCH TD SCH (10:45)
[2016-05-25] MEDS: PRENATAL VITAMINS W/ FOLIC ACID TABLET (FP) PO SCH (10:45)
--- NOTE | 2016-05-25 16:43 | PN ---
[facility] CIWA - CIWA Score Nausea/Vomitin-No Nausea/No Vomiting Muscle Tremors: 4-Moderate,w/Arms Extend Anxiety: 3 Agitation: 3 Paroxysmal Sweats: 3 Orientation: 0-Oriented Tacttile Disturbances: 0-None Auditory Disturbances: 0-None Visual Disturbances: 0-None Headache: 0-None Present CIWA-Ar Total Score: 13 S Progress Note (SOAP) Subjective: Anxiety,tremors,sweating,interrupted sleep,restless Objective: 05/25/16 16:41 Vital Signs - 8 hr 05/25/16 05/25/16 10:04 13:21 Temperature 96.4 F L 97.0 F L Pulse Rate 88 85 Respiratory 18 18 Rate Blood Pressure 134/98 142/89 Laboratory Last Values WBC 3.3 K/mm3 (4.0-10.0) L 05/24/16 06:00 RBC 3.83 M/mm3 (4.00-5.60) L 05/24/16 06:00 Hgb 12.5 GM/dL (11.7-16.9) 05/24/16 06:00 Hct 36.9 % (35.4-49) 05/24/16 06:00 MCV 96.2 fl (80-96) H 05/24/16 06:00 MCHC 34.0 g/dl (32.0-35.9) 05/24/16 06:00 RDW 15.5 % (11.9-15.9) 05/24/16 06:00 Plt Count 99 K/MM3 (134-434) L 05/24/16 06:00 MPV 10.7 fl (7.5-11.1) 05/24/16 06:00 Sodium 139 mmol/L (136-145) 05/24/16 06:00 Potassium 3.8 mmol/L (3.5-5.1) 05/24/16 06:00 Chloride 105 mmol/L (98-107) 05/24/16 06:00 Carbon Dioxide 24 mmol/L (21-32) 05/24/16 06:00 Anion Gap 10 (8-16) 05/24/16 06:00 BUN 9 mg/dL (7-18) D 05/24/16 06:00 Creatinine 0.8 mg/dL (0.7-1.3) 05/24/16 06:00 Creat Clearance w eGFR > 60 (>60) 05/24/16 06:00 Random Glucose 86 mg/dL (74-106) 05/24/16 06:00 Calcium 8.2 mg/dL (8.5-10.1) L 05/24/16 06:00 Total Bilirubin 0.6 mg/dL (0.2-1.0) D 05/24/16 06:00 AST 78 U/L (15-37) H D 05/24/16 06:00 ALT 48 U/L (12-78) D 05/24/16 06:00 Alkaline Phosphatase 224 U/L (45-117) H 05/24/16 06:00 Total Protein 8.1 g/dl (6.4-8.2) D 05/24/16 06:00 Albumin 3.3 g/dl (3.4-5.0) L D 05/24/16 06:00 Urine Color Yellow 05/23/16 14:00 Urine Appearance Clear 05/23/16 14:00 Urine pH 6.0 (5.0-8.0) D 05/23/16 14:00 Ur Specific [place] 1.013 (1.001-1.035) 05/23/16 14:00 Urine Protein Negative (NEGATIVE) 05/23/16 14:00 Urine Glucose (UA) Negative (NEGATIVE) 05/23/16 14:00 Urine Ketones Negative (NEGATIVE) 05/23/16 14:00 Urine Blood Negative (NEGATIVE) 05/23/16 14:00 Urine Nitrite Negative (NEGATIVE) 05/23/16 14:00 Urine Bilirubin Negative (NEGATIVE) 05/23/16 14:00 Urine Urobilinogen Negative E.U./dl (0.2-1.0) 05/23/16 14:00 Ur Leukocyte Esterase Negative (NEGATIVE) 05/23/16 14:00 RPR Titer Nonreactive (NONREACTIVE) 05/24/16 06:00 labs noted Assessment: 05/25/16 16:42 Withdrawal sx. Plan: Continue detox
[2016-05-25] MEDS: chlordiazePOXIDE 5 MG CAPSULE PO SCH ×2 (17:14→23:01)
[2016-05-25] MEDS: MIRTAZAPINE 15 MG TABLET (FP) PO SCH (23:01)
[2016-05-25] MEDS: THIAMINE HCL 100 MG TABLET (FP) PO SCH (23:01)
[2016-05-26] MEDS: chlordiazePOXIDE 5 MG CAPSULE PO SCH ×2 (06:05→10:49)
[2016-05-26] MEDS: TRIAMCINOLONE ACET 0.025% OINTMENT 15 GM TUBE TP SCH ×3 (06:06→22:23)
[2016-05-26] MEDS: ATOVAQUONE 750 MG/5 ML (UNIT-DOSE PACKAGING) PO SCH ×2 (07:07→17:12)
[2016-05-26] MEDS ORDERED: AZITHROMYCIN 600 MG TABLET PO SCH (10:00)
[2016-05-26] MEDS: amLODIPine BESYLATE 10 MG TABLET (FP) PO SCH (10:50)
[2016-05-26] MEDS: PRENATAL VITAMINS W/ FOLIC ACID TABLET (FP) PO SCH (10:50)
[2016-05-26] MEDS: NICOTINE 14 MG/24 HOURS TOPICAL PATCH TD SCH (10:50)
--- NOTE | 2016-05-26 12:46 | PN ---
S Progress Note (SOAP) Subjective: Interrupted sleep, Fatigue, Sweating, Tremors. Objective: PT. A & O X 3. 05/26/16 12:44 Vital Signs Temperature 96.7 F L 05/26/16 09:55 Pulse Rate 80 05/26/16 09:55 Respiratory Rate 20 05/26/16 09:55 Blood Pressure 121/84 05/26/16 09:55 O2 Sat by Pulse Oximetry (%) Laboratory Last Values WBC 3.3 K/mm3 (4.0-10.0) L 05/24/16 06:00 RBC 3.83 M/mm3 (4.00-5.60) L 05/24/16 06:00 Hgb 12.5 GM/dL (11.7-16.9) 05/24/16 06:00 Hct 36.9 % (35.4-49) 05/24/16 06:00 MCV 96.2 fl (80-96) H 05/24/16 06:00 MCHC 34.0 g/dl (32.0-35.9) 05/24/16 06:00 RDW 15.5 % (11.9-15.9) 05/24/16 06:00 Plt Count 99 K/MM3 (134-434) L 05/24/16 06:00 MPV 10.7 fl (7.5-11.1) 05/24/16 06:00 Sodium 139 mmol/L (136-145) 05/24/16 06:00 Potassium 3.8 mmol/L (3.5-5.1) 05/24/16 06:00 Chloride 105 mmol/L (98-107) 05/24/16 06:00 Carbon Dioxide 24 mmol/L (21-32) 05/24/16 06:00 Anion Gap 10 (8-16) 05/24/16 06:00 BUN 9 mg/dL (7-18) D 05/24/16 06:00 Creatinine 0.8 mg/dL (0.7-1.3) 05/24/16 06:00 Creat Clearance w eGFR > 60 (>60) 05/24/16 06:00 Random Glucose 86 mg/dL (74-106) 05/24/16 06:00 Calcium 8.2 mg/dL (8.5-10.1) L 05/24/16 06:00 Total Bilirubin 0.6 mg/dL (0.2-1.0) D 05/24/16 06:00 AST 78 U/L (15-37) H D 05/24/16 06:00 ALT 48 U/L (12-78) D 05/24/16 06:00 Alkaline Phosphatase 224 U/L (45-117) H 05/24/16 06:00 Total Protein 8.1 g/dl (6.4-8.2) D 05/24/16 06:00 Albumin 3.3 g/dl (3.4-5.0) L D 05/24/16 06:00 Urine Color Yellow 05/23/16 14:00 Urine Appearance Clear 05/23/16 14:00 Urine pH 6.0 (5.0-8.0) D 05/23/16 14:00 Ur Specific [place] 1.013 (1.001-1.035) 05/23/16 14:00 Urine Protein Negative (NEGATIVE) 05/23/16 14:00 Urine Glucose (UA) Negative (NEGATIVE) 05/23/16 14:00 Urine Ketones Negative (NEGATIVE) 05/23/16 14:00 Urine Blood Negative (NEGATIVE) 05/23/16 14:00 Urine Nitrite Negative (NEGATIVE) 05/23/16 14:00 Urine Bilirubin Negative (NEGATIVE) 05/23/16 14:00 Urine Urobilinogen Negative E.U./dl (0.2-1.0) 05/23/16 14:00 Ur Leukocyte Esterase Negative (NEGATIVE) 05/23/16 14:00 RPR Titer Nonreactive (NONREACTIVE) 05/24/16 06:00 LABS NOTED. Assessment: 05/26/16 12:46 WITHDRAWAL SYMPTOMS. Plan: CONTINUE DETOX. ADVISED PATIENT TO FOLLOW-UP WITH [facility] / REHAB MEDICAL PROVIDER AFTER DISCHARGE FROM DETOX FOR GENERAL MEDICAL ASSESSMENT AND FOR ABNORMAL ADMISSION LAB VALUES.
[2016-05-26] MEDS: chlordiazePOXIDE HCL 10 MG CAPSULE PO SCH ×2 (17:11→22:22)
[2016-05-26] MEDS: MIRTAZAPINE 15 MG TABLET (FP) PO SCH (22:24)
[2016-05-26] MEDS: THIAMINE HCL 100 MG TABLET (FP) PO SCH (22:26)
[2016-05-27] MEDS: chlordiazePOXIDE HCL 10 MG CAPSULE PO SCH ×2 (06:02→10:32)
[2016-05-27] MEDS: TRIAMCINOLONE ACET 0.025% OINTMENT 15 GM TUBE TP SCH (06:02)
[2016-05-27 06:29] VITALS: BP 130/80; PULSE 79; TEMP 96.3
[2016-05-27] MEDS: ATOVAQUONE 750 MG/5 ML (UNIT-DOSE PACKAGING) PO SCH (07:02)
--- NOTE | 2016-05-27 08:49 | PN ---
S Progress Note (SOAP) Subjective: no complaints Objective: 05/27/16 08:47 Vital Signs - 8 hr 05/27/16 05/27/16 03:30 06:28 Temperature 96.3 F L Pulse Rate 79 Respiratory 18 18 Rate Blood Pressure 130/80 Laboratory Tests 05/23/16 05/24/16 05/24/16 14:00 06:00 06:00 WBC 3.3 L RBC 3.83 L Hgb 12.5 Hct 36.9 MCV 96.2 H MCHC 34.0 RDW 15.5 Plt Count 99 L MPV 10.7 Sodium 139 Potassium 3.8 Chloride 105 Carbon Dioxide 24 Anion Gap 10 BUN 9 D Creatinine 0.8 Creat Clearance w eGFR > 60 Random Glucose 86 Calcium 8.2 L Total Bilirubin 0.6 D AST 78 H D ALT 48 D Alkaline Phosphatase 224 H Total Protein 8.1 D Albumin 3.3 L D Urine Color Yellow Urine Appearance Clear Urine pH 6.0 D Ur Specific [place] 1.013 Urine Protein Negative Urine Glucose (UA) Negative Urine Ketones Negative Urine Blood Negative Urine Nitrite Negative Urine Bilirubin Negative Urine Urobilinogen Negative Ur Leukocyte Esterase Negative RPR Titer 05/24/16 06:00 WBC RBC Hgb Hct MCV MCHC RDW Plt Count MPV Sodium Potassium Chloride Carbon Dioxide Anion Gap BUN Creatinine Creat Clearance w eGFR Random Glucose Calcium Total Bilirubin AST ALT Alkaline Phosphatase Total Protein Albumin Urine Color Urine Appearance Urine pH Ur Specific [place] Urine Protein Urine Glucose (UA) Urine Ketones Urine Blood Urine Nitrite Urine Bilirubin Urine Urobilinogen Ur Leukocyte Esterase RPR Titer Nonreactive elevated lfts, hyoalbuminemia Assessment: 05/27/16 08:48 completed detox, medically stable, hepatitis, malnutrition 2/2 substance use Plan: discharge today, f/u PCP for medical care after rehab, fluids
--- NOTE | 2016-05-27 08:54 | DS ---
[facility] Detox Discharge Summary Admission Date: 05/23/16 Discharge Date: 05/27/16 - History Present History: Alcohol Dependence, Cocaine Dependence Pertinent Past History: anxiety, depression, insomnia, HIV - Physical Exam Results Vital Signs: Vital Signs Temperature 96.3 F L 05/27/16 06:28 Pulse Rate 79 05/27/16 06:28 Respiratory Rate 18 05/27/16 06:28 Blood Pressure 130/80 05/27/16 06:28 O2 Sat by Pulse Oximetry (%) Pertinent Admission Physical Exam Findings: withdrawal sx - Treatment Hospital Course: Detox Protocol Followed, Detoxed Safely, Responded well, Discharged Condition Good, Rehab Referral Accepted - Medication Discharge Medications: Ambulatory Orders Atovaquone [Mepron -] 750 mg PO BID 02/14/16 Amlodipine Besylate [Norvasc -] 10 mg PO DAILY 05/23/16 Azithromycin [Zithromax -] 1,200 mg PO WEEKLY 05/23/16 Mirtazapine [Remeron -] 15 mg PO HS #30 tablet 05/23/16 Risperidone [Risperdal -] 2 mg PO BID #30 tablet 05/23/16 Risperidone [Risperdal] 2 mg PO BID 05/23/16 Triamcinolone 0.025% Ointment [Aristocort 0.025% Ointment -] 1 applic TP TID #1 tube 05/27/16 - Diagnosis (1) Alcohol dependence with uncomplicated withdrawal Current Visit: Yes Status: Chronic (2) Cocaine dependence, uncomplicated Current Visit: Yes Status: Chronic (3) Drug-induced mood disorder Current Visit: Yes Status: Acute (4) Insomnia Current Visit: Yes Status: Acute (5) Nicotine dependence Current Visit: Yes Status: Chronic Qualifiers: Nicotine product type: cigarettes Substance use status: in withdrawal Qualified Code(s): F17.213 - Nicotine dependence, cigarettes, with withdrawal (6) Elephantiasis (nonfilarial) Current Visit: Yes Status: Chronic (7) HIV (human immunodeficiency virus infection) Current Visit: Yes Status: Chronic (8) Lymphedema of extremity Current Visit: Yes Status: Chronic (9) Rash, skin Current Visit: Yes Status: Chronic (10) Schizoaffective disorder, depressive type Current Visit: Yes Status: Chronic (11) Weight loss Current Visit: No Status: Chronic (12) Mandibular fracture Current Visit: No Status: Suspected Qualifiers: Encounter type: sequela (13) Schizoaffective disorder Current Visit: No Status: Suspected - AMA Did Patient Leave Against Medical Advice: No
[2016-05-27] MEDS: PRENATAL VITAMINS W/ FOLIC ACID TABLET (FP) PO SCH (10:32)
[2016-05-27] MEDS: NICOTINE 14 MG/24 HOURS TOPICAL PATCH TD SCH (10:32)
[2016-05-27] MEDS: amLODIPine BESYLATE 10 MG TABLET (FP) PO SCH (10:32)
== END 2016-05-27 11:25 | disposition other institution (70) | DRG 774 ==
LOC: YASAS 09:59 → Y3N 14:18
PROVIDERS: ADMIT Internal Medicine; ATTEND Internal Medicine
PROC: HZ2ZZZZ Detoxification Services for Substance Abuse Treatment (ICD-10-PCS; principal; 2016-05-27)
DX: F10.230 Alcohol dependence with withdrawal, uncomplicated (principal); F14.20 Cocaine dependence, uncomplicated; F17.210 Nicotine dependence, cigarettes, uncomplicated; F19.24 Other psychoactive substance dependence with psychoactive substance-induced mood disorder; F25.9 Schizoaffective disorder, unspecified; G47.00 Insomnia, unspecified; I89.0 Lymphedema, not elsewhere classified; L40.9 Psoriasis, unspecified; Z21 Asymptomatic human immunodeficiency virus [HIV] infection status; R63.4 Abnormal weight loss; Z68.28 Body mass index [BMI] 28.0-28.9, adult
CPT/HCPCS: 36415; 80053; 81003; 85027; 86593; 93005; 93010

== ENCOUNTER 2016-05-27 11:30 | Inpatient (IN) | payer OTHER ==
--- NOTE | 2016-05-27 12:44 | HP ---
Psychiatrist Admission - Data Date of interview: 05/27/16 Admission source: 3N Identifying data: This is the second [facility] admission for thid 45 years old single Black male, father of 2 children, unempolyed on SSI, domiciled Medical History: Significant for HIV infection since 2004, hypertension, lymphedema (right leg), history of surgery for fracture of left mandible and orthosurgery on right leg (jesus in place). Smokes 2 cigarettes daily Psychiatric History: Reports that his first psychiatric contact was at age 27 when he was admitted to [facility] one month following his mother's because he was feeling depressed, hearing voices and trying to kill himself by overdosing on pain killers. After 3 weeks stay, he was discharged on Risperdal and referred to OPD but did not go. Reports one subsequent admissions in 2013 to [facility] because of AH & SA by trying to jmp off a 16 floor building. He was kept for one week and treated with Risperdal. As before, he failed to report for OPD care. At present, he does not have OPD care but goes to [facility] ED for his medications. He is currently on Risperdal 2 mg po BID and remeron 15 mg po HS. According to pharmacy claims he last filled both scripts on 05/12/16 @ [facility]. He told greeting card writer that he is diagnosed with depression but he was labelled to have Schizoaffective Disorder on previous admissions in this facility. Physical/Sexual Abuse/Trauma History: Denies history of emotional, physical or sexual abuse DV relationship. No service Additional Comment: Reports history of 2 previous misdemeanor arrests. Denies being on probation at present Vital Signs: Vital Signs - 24 hr 05/27/16 12:08 Temperature 98.6 F Pulse Rate 87 Blood Pressure 129/75 Allergies/Adverse Reactions: Allergies Allergy/AdvReac Type Severity Reaction Status Date / Time acetaminophen [From Tylenol] Allergy Severe Swelling Verified 05/24/16 01:58 vancomycin Allergy Severe Itching Verified 05/24/16 01:58 Date of last physical exam: 05/23/16 Concur with the findings of this exam: Yes - Substance Abuse/Tx History Hx Alcohol Use: Yes Hx Substance Use: Yes Substance Use Type: Alcohol (Started drinking alcohol at age 19, consumes 2 pints of vodka & 6x 12oz of beer daily. Last drink on 05/23/16), Cocaine ( Started smoking crack cocaine at age 25, consumes $30-40 worth daily. Last smoked on 05/22/16) Hx Substance Use Treatment: Yes (4 previous inpt detox & one inpt ehab @ [facility]) - Admission Criteria Previous failed treatment: Yes Poor recovery environment: Yes Comorbidities: Yes Lacks judgement: Yes Mental Status Exam - Mental Status Exam Alert and Oriented to: Time, Place, Person Cognitive Function: Fair Patient Appearance: Disheveled Mood: Anxious Affect: Blunted Patient Behavior: Cooperative Speech Pattern: Clear Voice Loudness: Normal Thought Process: Intact Thought Disorder: Not Present Hallucinations: Denies Suicidal Ideation: Denies, Past, Plan Homicidal Ideation: Denies Insight/Judgement: Fair Sleep: Poorly Appetite: Good Muscle strength/Tone: Normal Gait/Station: Normal Psychiatric Findings - Problem List ([place] 1, 2,3) (1) Alcohol dependence with uncomplicated withdrawal Current Visit: No Status: Chronic (2) Cocaine dependence, uncomplicated Current Visit: No Status: Chronic (3) Nicotine dependence Current Visit: No Status: Chronic Qualifiers: Nicotine product type: cigarettes Substance use status: in withdrawal Qualified Code(s): F17.213 - Nicotine dependence, cigarettes, with withdrawal (4) Schizoaffective disorder, depressive type Current Visit: No Status: Chronic (5) HIV (human immunodeficiency virus infection) Current Visit: No Status: Chronic (6) Lymphedema of extremity Current Visit: No Status: Chronic (7) Mandibular fracture Current Visit: No Status: Suspected Qualifiers: Encounter type: sequela - Initial Treatment Plan Initial Treatment Plan: 1) Continue Risperdal 2 mg po BID and Remeron 15 mg po HS. 2) Monitor progress
[2016-05-27] MEDS ORDERED: NICOTINE POLACRILEX 2 MG GUM BUC PRN (15:21)
[2016-05-27] MEDS ORDERED: MAGNESIUM HYDROX 2400MG/30ML ORAL SUSPENSION 30 ML CUP PO PRN (15:21)
[2016-05-27] MEDS ORDERED: guaiFENesin/D-METHORPHAN HB 10 ML UNIT-DOSE CUPS PO PRN (15:21)
[2016-05-27] MEDS ORDERED: MENTHOL/PHENOL 1 EACH UD MM PRN (15:21)
[2016-05-27] MEDS ORDERED: MAGNESIUM CITRATE 300 ML BOTTLE PO PRN (15:21)
[2016-05-27] MEDS ORDERED: LOPERAMIDE HCL 2 MG CAPSULE PO PRN (15:21)
[2016-05-27] MEDS ORDERED: P-EPHED 60MG/TRIPROLIDI 2.5MG TABLET PO PRN (15:21)
[2016-05-27] MEDS ORDERED: MAG HYDROX/AL HYDROX/SIMETH 30 ML UNIT-DOSE CUP PO PRN (15:21)
[2016-05-27] MEDS ORDERED: IBUPROFEN 400 MG TABLET (FP) PO PRN (15:21)
--- NOTE | 2016-05-27 15:24 | HP ---
[facility] Rehab Assess/Revision - Admission History Admitted to Rehab from: [facility] [place] Date of Admission to Rehab: 05/27/16 - Vital signs Vital Signs: Vital Signs Period Temp Pulse Resp BP Sys/Vieyra Pulse Ox Last 24 Hr 98.6 F 87 129/75 - Findings Detox History & Physical reviewed: Yes Concur with findings: Yes
[2016-05-27] MEDS ORDERED: PT OWN MED DRAWER 7, Y5N ONE (16:59)
[2016-05-27] MEDS: ATOVAQUONE 750 MG/5 ML (UNIT-DOSE PACKAGING) PO SCH (17:52)
[2016-05-27] MEDS: risperiDONE 2 MG TABLET PO SCH (21:52)
[2016-05-27] MEDS: THIAMINE HCL 100 MG TABLET (FP) PO SCH (21:52)
[2016-05-27] MEDS: MIRTAZAPINE 15 MG TABLET (FP) PO SCH (21:52)
[2016-05-27] MEDS: TRIAMCINOLONE ACET 0.025% OINTMENT 15 GM TUBE TP SCH (21:55)
[2016-05-28] MEDS ORDERED: PT OWN MED DRAWER 7, Y5N ONE ×3 (05:27→17:38)
[2016-05-28] MEDS: TRIAMCINOLONE ACET 0.025% OINTMENT 15 GM TUBE TP SCH ×3 (06:36→21:41)
[2016-05-28] MEDS: ATOVAQUONE 750 MG/5 ML (UNIT-DOSE PACKAGING) PO SCH ×2 (07:25→17:37)
[2016-05-28] MEDS: NICOTINE 21 MG/24 HOURS TOPICAL PATCH TD SCH (09:53)
[2016-05-28] MEDS: amLODIPine BESYLATE 10 MG TABLET (FP) PO SCH (09:54)
[2016-05-28] MEDS: risperiDONE 2 MG TABLET PO SCH ×2 (09:54→21:40)
[2016-05-28] MEDS: PRENATAL VITAMINS W/ FOLIC ACID TABLET (FP) PO SCH (09:54)
[2016-05-28] MEDS: MIRTAZAPINE 15 MG TABLET (FP) PO SCH (21:40)
[2016-05-28] MEDS: diphenhydrAMINE HCL 50 MG CAPSULE PO PRN (21:40)
[2016-05-28] MEDS: THIAMINE HCL 100 MG TABLET (FP) PO SCH (21:40)
[2016-05-29] MEDS ORDERED: PT OWN MED DRAWER 7, Y5N ONE ×2 (05:23→17:35)
[2016-05-29] MEDS: TRIAMCINOLONE ACET 0.025% OINTMENT 15 GM TUBE TP SCH ×3 (06:36→22:59)
[2016-05-29] MEDS: ATOVAQUONE 750 MG/5 ML (UNIT-DOSE PACKAGING) PO SCH ×2 (07:37→17:34)
[2016-05-29] MEDS: NICOTINE 21 MG/24 HOURS TOPICAL PATCH TD SCH (09:30)
[2016-05-29] MEDS: risperiDONE 2 MG TABLET PO SCH ×2 (09:30→22:59)
[2016-05-29] MEDS: PRENATAL VITAMINS W/ FOLIC ACID TABLET (FP) PO SCH (09:30)
[2016-05-29] MEDS: amLODIPine BESYLATE 10 MG TABLET (FP) PO SCH (09:30)
[2016-05-29] MEDS: MIRTAZAPINE 15 MG TABLET (FP) PO SCH (22:59)
[2016-05-29] MEDS: THIAMINE HCL 100 MG TABLET (FP) PO SCH (22:59)
[2016-05-30] MEDS ORDERED: PT OWN MED DRAWER 7, Y5N ONE ×4 (05:42→16:33)
[2016-05-30] MEDS: TRIAMCINOLONE ACET 0.025% OINTMENT 15 GM TUBE TP SCH ×3 (06:02→21:48)
[2016-05-30] MEDS: ATOVAQUONE 750 MG/5 ML (UNIT-DOSE PACKAGING) PO SCH ×2 (08:03→16:51)
[2016-05-30] MEDS: PRENATAL VITAMINS W/ FOLIC ACID TABLET (FP) PO SCH (09:57)
[2016-05-30] MEDS: risperiDONE 2 MG TABLET PO SCH ×2 (09:57→21:47)
[2016-05-30] MEDS: amLODIPine BESYLATE 10 MG TABLET (FP) PO SCH (09:57)
[2016-05-30] MEDS: NICOTINE 21 MG/24 HOURS TOPICAL PATCH TD SCH (09:58)
[2016-05-30] MEDS: THIAMINE HCL 100 MG TABLET (FP) PO SCH (21:46)
[2016-05-30] MEDS: MIRTAZAPINE 15 MG TABLET (FP) PO SCH (21:47)
[2016-05-30] MEDS: diphenhydrAMINE HCL 50 MG CAPSULE PO PRN (21:47)
[2016-05-31] MEDS: TRIAMCINOLONE ACET 0.025% OINTMENT 15 GM TUBE TP SCH ×3 (06:27→23:22)
[2016-05-31] MEDS: ATOVAQUONE 750 MG/5 ML (UNIT-DOSE PACKAGING) PO SCH ×2 (07:24→17:42)
[2016-05-31] MEDS: risperiDONE 2 MG TABLET PO SCH ×2 (09:47→23:23)
[2016-05-31] MEDS: amLODIPine BESYLATE 10 MG TABLET (FP) PO SCH (09:47)
[2016-05-31] MEDS: PRENATAL VITAMINS W/ FOLIC ACID TABLET (FP) PO SCH (09:47)
[2016-05-31] MEDS: NICOTINE 21 MG/24 HOURS TOPICAL PATCH TD SCH (09:48)
[2016-05-31] MEDS ORDERED: PT OWN MED DRAWER 7, Y5N ONE (17:42)
[2016-05-31] MEDS: MIRTAZAPINE 15 MG TABLET (FP) PO SCH (23:22)
[2016-05-31] MEDS: THIAMINE HCL 100 MG TABLET (FP) PO SCH (23:23)
[2016-06-01] MEDS: TRIAMCINOLONE ACET 0.025% OINTMENT 15 GM TUBE TP SCH ×3 (06:17→21:18)
[2016-06-01] MEDS: ATOVAQUONE 750 MG/5 ML (UNIT-DOSE PACKAGING) PO SCH ×2 (07:01→17:07)
[2016-06-01] MEDS: amLODIPine BESYLATE 10 MG TABLET (FP) PO SCH (09:50)
[2016-06-01] MEDS: PRENATAL VITAMINS W/ FOLIC ACID TABLET (FP) PO SCH (09:50)
[2016-06-01] MEDS: risperiDONE 2 MG TABLET PO SCH ×2 (09:50→21:19)
[2016-06-01] MEDS: NICOTINE 21 MG/24 HOURS TOPICAL PATCH TD SCH (09:51)
[2016-06-01] MEDS ORDERED: PT OWN MED DRAWER 7, Y5N ONE (16:56)
[2016-06-01] MEDS: MIRTAZAPINE 15 MG TABLET (FP) PO SCH (21:19)
[2016-06-01] MEDS: THIAMINE HCL 100 MG TABLET (FP) PO SCH (21:19)
[2016-06-01] MEDS: diphenhydrAMINE HCL 50 MG CAPSULE PO PRN (21:19)
[2016-06-02] MEDS: TRIAMCINOLONE ACET 0.025% OINTMENT 15 GM TUBE TP SCH ×3 (06:35→23:08)
[2016-06-02] MEDS: ATOVAQUONE 750 MG/5 ML (UNIT-DOSE PACKAGING) PO SCH ×2 (07:21→17:42)
[2016-06-02] MEDS ORDERED: PT OWN MED DRAWER 7, Y5N ONE ×2 (09:22→17:42)
[2016-06-02] MEDS ORDERED: AZITHROMYCIN 600 MG TABLET PO SCH (10:00)
[2016-06-02] MEDS: NICOTINE 21 MG/24 HOURS TOPICAL PATCH TD SCH (10:02)
[2016-06-02] MEDS: PRENATAL VITAMINS W/ FOLIC ACID TABLET (FP) PO SCH (10:02)
[2016-06-02] MEDS: risperiDONE 2 MG TABLET PO SCH ×2 (10:03→21:36)
[2016-06-02] MEDS: amLODIPine BESYLATE 10 MG TABLET (FP) PO SCH (10:03)
[2016-06-02] MEDS: THIAMINE HCL 100 MG TABLET (FP) PO SCH (21:35)
[2016-06-02] MEDS: diphenhydrAMINE HCL 50 MG CAPSULE PO PRN (21:36)
[2016-06-02] MEDS: MIRTAZAPINE 15 MG TABLET (FP) PO SCH (21:36)
[2016-06-03] MEDS: TRIAMCINOLONE ACET 0.025% OINTMENT 15 GM TUBE TP SCH ×3 (06:27→21:37)
[2016-06-03] MEDS: ATOVAQUONE 750 MG/5 ML (UNIT-DOSE PACKAGING) PO SCH ×2 (07:25→16:59)
[2016-06-03] MEDS: amLODIPine BESYLATE 10 MG TABLET (FP) PO SCH (09:52)
[2016-06-03] MEDS: PRENATAL VITAMINS W/ FOLIC ACID TABLET (FP) PO SCH (09:52)
[2016-06-03] MEDS: risperiDONE 2 MG TABLET PO SCH ×2 (09:52→21:36)
[2016-06-03] MEDS: NICOTINE 21 MG/24 HOURS TOPICAL PATCH TD SCH (10:47)
[2016-06-03] MEDS ORDERED: IBUPROFEN 600 MG TABLET (FP) PO PRN (12:02)
[2016-06-03] MEDS ORDERED: PT OWN MED DRAWER 7, Y5N ONE (16:34)
[2016-06-03] MEDS: MIRTAZAPINE 15 MG TABLET (FP) PO SCH (21:36)
[2016-06-03] MEDS: diphenhydrAMINE HCL 50 MG CAPSULE PO PRN (21:36)
[2016-06-03] MEDS: THIAMINE HCL 100 MG TABLET (FP) PO SCH (21:36)
[2016-06-04] MEDS: TRIAMCINOLONE ACET 0.025% OINTMENT 15 GM TUBE TP SCH (06:17)
[2016-06-04 06:34] VITALS: TEMP 98
[2016-06-04] MEDS: ATOVAQUONE 750 MG/5 ML (UNIT-DOSE PACKAGING) PO SCH (07:09)
[2016-06-04] MEDS ORDERED: PT OWN MED DRAWER 7, Y5N ONE (08:25)
[2016-06-04 09:08] VITALS: BP 135/81; PULSE 102
[2016-06-04] MEDS: risperiDONE 2 MG TABLET PO SCH (09:53)
[2016-06-04] MEDS: PRENATAL VITAMINS W/ FOLIC ACID TABLET (FP) PO SCH (09:53)
[2016-06-04] MEDS: amLODIPine BESYLATE 10 MG TABLET (FP) PO SCH (09:54)
[2016-06-04] MEDS: NICOTINE 21 MG/24 HOURS TOPICAL PATCH TD SCH (09:54)
--- NOTE | 2016-06-04 11:51 | PN ---
Psychiatric Progress Note Vital Signs: Vital Signs Period Temp Pulse Resp BP Sys/Vieyra Pulse Ox Last 24 Hr 98 F 92-102 18-20 118-135/74-81 Date of Session: 06/04/16 Chief Complaint:: Discharge visit HPI: Called to evaluate this patient who requested to be discharged today.Mr Garcia is already known to this press writer.Previously seen on [facility] [place] (05/23/16) where he was admitted for detoxification treatment.Transferred to this unit [facility] [place] for rehabilitation care.Patient is addressing alcohol dependence,cocaine dependence,co-morbid with nicotine dependence and schizoaffective disorder.However,he approached staff this morning to inform that he has changed his mind about completing this program.He insists on getting discharged today for personal reasons.Declines to reconsider. ROS: Unremarkable.No somatic complaints offered.Patient is ambulatory (uses a cane).Medical issues were addressed.Cognition is intact.Medically cleared. Current Medications: Active Medications Generic Name Dose Route Start Last Admin Trade Name Freq PRN Reason Stop Dose Admin Al Hydroxide/Mg Hydroxide 30 ml 05/27/16 15:21 Mylanta Oral Suspension - PO Q6H PRN DYSPEPSIA Amlodipine Besylate 10 mg 05/28/16 10:00 06/04/16 09:54 Norvasc - PO 10 mg DAILY MARY Administration Atovaquone 750 mg 05/27/16 17:30 06/04/16 07:09 Mepron - PO 750 mg BIDWM MARY Administration Azithromycin 1,200 mg 06/02/16 10:00 06/02/16 10:03 Zithromax - PO 1,200 mg Th@1000 MARY Administration Diphenhydramine HCl 50 mg 05/27/16 15:21 06/03/16 21:36 Benadryl - PO 50 mg HSMR1 PRN Administration FOR ITCHING Eucalyptus/Menthol/Phenol/Sorbitol 1 each 05/27/16 15:21 Cepastat Lozenge - MM Q4H PRN SORE THROAT Guaifenesin 10 ml 05/27/16 15:21 Robitussin Dm - PO Q6H PRN COUGH Ibuprofen 600 mg 06/03/16 12:02 Motrin - PO Q6H PRN PAIN Loperamide HCl 4 mg 05/27/16 15:21 Imodium - PO Q6H PRN DIARRHEA Magnesium Hydroxide 30 ml 05/27/16 15:21 Milk Of Magnesia - PO DAILY PRN CONSTIPATION Mirtazapine 15 mg 05/27/16 22:00 06/03/16 21:36 Remeron - PO 15 mg HS MARY Administration Nicotine 21 mg 05/28/16 10:00 06/04/16 09:54 Nicoderm Patch - TD Not Given DAILY MARY Nicotine Polacrilex 2 mg 05/27/16 15:21 Nicorette Gum - BUC Q2H PRN NICOTINE REPLACEMENT RX Multivit/Folic Acid/Iron 1 tab 05/28/16 10:00 06/04/16 09:53 Vitamins (Sjr) - PO 1 tab DAILY MARY Administration Pseudoephedrine/Triprolidine 1 combo 05/27/16 15:21 Actifed - PO TID PRN NASAL CONGESTION Risperidone 2 mg 05/27/16 22:00 06/04/16 09:53 Risperdal - PO 2 mg BID MARY Administration Thiamine HCl 100 mg 05/27/16 22:00 06/03/16 21:36 Vitamin B1 - PO 100 mg HS MARY Administration Triamcinolone Acetonide 1 applic 05/27/16 22:00 06/04/16 06:17 Aristocort 0.025% Ointment - TP 1 applic TID MARY Administration Medication(s) Change(s): No changes.Scripts were electronically sent to [facility] @ [address] [place] [phone].Consist of risperdal 2 mg po bid + remeron 15 mg po hs (30-day supply).Patient is reminded of side effects/ benefits of both drugs.Made aware of potential for EPS (dystonias,akathisia, akinesia,akathisia),NMS (neuroleptic malignant syndrome),endocrine complications (galactorrhea,gynecomastia,sexual impotence),cardiac adverse events,metabolic syndrome with use of risperdal and oversedation/hypotension with mirtazapine.Patient is in agreement with this plan of care.Medications are well tolerated during hospital course. Current Side Effect: No Lab tests ordered: No Lab tests reviewed: Yes Provider note:: Patient has decided to leave this program due to unforeseen family issues.He has partially addressed his issues and met short-term goals.Mr Garcia declines referrals.He states that he will continue to utilize [facility] emergency room for medication refills until he gets an appointment for intake (OPD care).Medical follow up will be resumed at the [facility] by his usual providers.Patient reports that he has urgent family matters that need his immediate attention.It is suggested that he needs to assist his daughter in some emergent situation.Mr Garcia indicates that,in spite of his short stay at [facility],he did manage to extract positive feedbacks that will help him maintain sobriety.He understands the importance of adherence to aftercare.States that he will incorporate elements of teachings received in this program to avoid triggers,modify his behavior for prevention of relapses.Hospital course is uneventful.Stable mental status.MSE completed.See report.Mr Garcia is at his baseline.Patient is stable for discharge.Cleared by medical attending,Dr Diaz. Total face to face time:: 45 Mental Status Exam - Mental Status Exam Alert and Oriented to: Time, Place, Person Cognitive Function: Good Patient Appearance: Well Groomed (ambulates with cane) Mood: Hopeful, Euthymic Affect: Appropriate, Normal Range Patient Behavior: Appropriate, Cooperative Speech Pattern: Clear, Appropriate Voice Loudness: Normal Thought Process: Goal Oriented Thought Disorder: Not Present Hallucinations: Denies Suicidal Ideation: Denies Homicidal Ideation: Denies Insight/Judgement: Fair Sleep: Well (self-report) Appetite: Good Muscle strength/Tone: Normal Gait/Station: Other (walks with a cane) Psychiatric Treatment Plan - Problem List (1) Alcohol dependence with uncomplicated withdrawal Current Visit: Yes (2) Cocaine dependence, uncomplicated Current Visit: Yes (3) Nicotine dependence Current Visit: Yes Qualifiers: Nicotine product type: cigarettes Substance use status: in withdrawal Qualified Code(s): F17.213 - Nicotine dependence, cigarettes, with withdrawal (4) Drug-induced mood disorder Current Visit: Yes (5) Schizoaffective disorder Current Visit: Yes (6) Elephantiasis (nonfilarial) Current Visit: Yes (7) HIV (human immunodeficiency virus infection) Current Visit: Yes (8) Lymphedema of extremity Current Visit: Yes
== END 2016-06-04 12:50 | disposition home or self-care (01) | DRG 772 ==
LOC: YASAS 11:30 → Y3W 11:33
PROVIDERS: ADMIT Psychiatry & Neurology Psychiatry; ATTEND Psychiatry & Neurology Psychiatry
PROC: HZ42ZZZ Group Counseling for Substance Abuse Treatment, Cognitive-Behavioral (ICD-10-PCS; principal; 2016-06-04)
DX: F10.230 Alcohol dependence with withdrawal, uncomplicated (principal); F14.20 Cocaine dependence, uncomplicated; F17.210 Nicotine dependence, cigarettes, uncomplicated; F19.24 Other psychoactive substance dependence with psychoactive substance-induced mood disorder; F25.9 Schizoaffective disorder, unspecified; I89.0 Lymphedema, not elsewhere classified; Z21 Asymptomatic human immunodeficiency virus [HIV] infection status

== ENCOUNTER 2018-09-02 09:09 | Inpatient (IN) | payer OTHER ==
[2018-09-02 10:18] VITALS: BMI 27.2
--- NOTE | 2018-09-02 11:14 | HP ---
"CIWA Score Nausea/Vomitin-No Nausea/No Vomiting Muscle Tremors: 4-Moderate,w/Arms Extend Anxiety: 2 Agitation: 0-Normal Activity Paroxysmal Sweats: 2 Orientation: 0-Oriented Tacttile Disturbances: 0-None Auditory Disturbances: 0-None Visual Disturbances: 0-None Headache: 2-Mild CIWA-Ar Total Score: 10 - Admission Criteria OASAS Guidelines: Admission for Medically Managed Detox: Requires at least one of the followin. CIWA greater than 12 2. Seizures within the past 24 hours 3. Delirium tremens within the past 24 hours 4. Hallucinations within the past 24 hours 5. Acute intervention needed for co occurring medical disorder 6. Acute intervention needed for co occurring psychiatric disorder 7. Severe withdrawal that cannot be handled at a lower level of care (continued vomiting, continued diarrhea, abnormal vital signs) requiring intravenous medication and/or fluids 8. Admission [facility] Allergies/Adverse Reactions: Allergies Allergy/AdvReac Type Severity Reaction Status Date / Time acetaminophen [From Tylenol] Allergy Severe Swelling Verified 09/02/18 10:06 vancomycin Allergy Severe Itching Verified 09/02/18 10:06 History of Present Illness: pt here requesting detox from etoh use , reports 2 pints/day x 2 years , previously at this facility in 2017 , current symptoms as above, reports etoh use in the mornings , + tremors if not drinking , reports blackouts , denies w/d seizure. Has d/c paperwork from [facility] indicating Librium given 5: 52 am cocaine : 20 $ /day cannabis : 5 $/day tobacco : denies pmhx : htn, hiv non- compliant w/ meds , elephantiasis r le pshx : r leg ORIF for tibial frx. psych : depression , denies current SI / HI , past suicide attempt 2 months ago by taking meds Percocet taken to [facility] Search Terms: manisha ulloa, 1970 Search Date: 09/02/2018 11:15:37 AM This report was requested by: Violet Alexis | Reference #: [id number] There are no results for the search terms that you entered. Exam Limitations: Clinical Condition - Ebola screening Have you traveled outside of the country in the last 21 days: No (N) Have you had contact with anyone from an Ebola affected area: No Do you have a fever: No - Review of Systems Constitutional: No Symptoms Reported EENT: reports: No Symptoms Reported Respiratory: reports: No Symptoms reported Cardiac: reports: No Symptoms Reported GI: reports: No Symptoms Reported : reports: No Symptoms Reported Musculoskeletal: reports: See HPI, Other Integumentary: reports: See HPI Endocrine: reports: No Symptoms Reported Psychiatric: reports: Orientated x3, Depressed Patient History - Patient Medical History Hx Anemia: No Hx Asthma: No Hx Chronic Obstructive Pulmonary Disease (COPD): No Hx Cancer: No Hx Cardiac Disorders: No Hx Hypertension: Yes Hx Hypercholesterolemia: No Hx Pacemaker: No HX Cerebrovascular Accident: No Hx Seizures: No Hx Dementia: No Hx Diabetes: No Hx Gastrointestinal Disorders: No Hx Liver Disease: No Hx Genitourinary Disorders: No Hx Sexually Transmitted Disorders: Yes Hx Renal Disease (ESRD): No Hx Thyroid Disease: No Hx Human Immunodeficiency Virus (HIV): Yes (SINCE 2004;WAS ON TIVICAY BUT STOPPED;NEW WORKUP RESULT PENDING.) Hx Hepatitis C: No Hx Depression: Yes Hx Suicide Attempt: No Hx Bipolar Disorder: No Hx Schizophrenia: No - Patient Surgical History Past Surgical History: Yes Hx Neurologic Surgery: No Hx Cataract Extraction: No Hx Cardiac Surgery: No Hx Lung Surgery: No Hx Breast Surgery: No Hx Breast Biopsy: No Hx Abdominal Surgery: No Hx Appendectomy: No Hx Cholecystectomy: No Hx Genitourinary Surgery: No Hx Section: No Hx Orthopedic Surgery: Yes (1999- rt leg jesus ) Other Surgical History: Fx mandible LEFT Anesthesia Reaction: No - PPD History Date: 02/16/16 Results: O MM - Smoking Cessation Smoking history: Current every day smoker Have you smoked in the past 12 months: Yes Aproximately how many cigarettes per day: 2 Cigars Per Day: 0 Hx Chewing Tobacco Use: No Initiated information on smoking cessation: No Family Disease History - Family Disease History Family Disease History: Diabetes: Mother ( age 56 ) Admission Physical Exam BHS - Vital Signs Vital Signs: Vital Signs - 24 hr 09/02/18 09:51 Temperature 97.6 F Pulse Rate 73 Respiratory 16 Rate Blood Pressure 175/113 H - Physical General Appearance: Yes: Disheveled, Moderate Distress, Tremorous, Anxious HEENTM: Yes: Hearing grossly Normal, Normocephalic, Normal Voice Respiratory: Yes: Lungs Clear, Normal Breath Sounds, No Respiratory Distress, No Accessory Muscle Use Neck: Yes: No masses,lesions,Nodules, Trachea in good position Cardiology: Yes: Regular Rhythm, Regular Rate, S1, S2 Abdominal: Yes: Non Tender, Soft Musculoskeletal: Yes: Other (unsteady gait 2/2 r le abnormality) Extremities: Yes: Other (severe edema R LE h/o elephantiasis) Neurological: Yes: Fully Oriented, Alert, Motor Strength 5/5, Depressed Affect Integumentary: Yes: Warm, Other (hyperpigmentation R LE) - Diagnostic (1) Alcohol dependence with uncomplicated withdrawal Current Visit: Yes Status: Acute (2) Cocaine dependence, uncomplicated Current Visit: Yes Status: Chronic Breathalyzer - Breathalyzer Breathalyzer: 0 Urine Drug Screen - Test Device Lot number: [id number] Expiration date: 06/05/20 - Control Is test valid?: Yes - Results Drug screen NEGATIVE: No Urine drug screen results: THC-Marijuana, WAN-Cocaine, BZO-Benzodiazepines Inpatient Rehab Admission - Rehab Decision to Admit Inpatient rehab admission?: No"
[2018-09-02] MEDS ORDERED: MAGNESIUM CITRATE 300 ML BOTTLE PO PRN (11:32)
[2018-09-02] MEDS ORDERED: MAG HYDROX/AL HYDROX/SIMETH 30 ML UNIT-DOSE CUP PO PRN (11:32)
[2018-09-02] MEDS ORDERED: MENTHOL/PHENOL 1 EACH UD MM PRN (11:32)
[2018-09-02] MEDS ORDERED: IBUPROFEN 400 MG TABLET (FP) PO PRN (11:32)
[2018-09-02] MEDS ORDERED: hydrOXYzine PAMOATE 25 MG CAPSULE (FP) PO PRN (11:32)
[2018-09-02] MEDS ORDERED: MAGNESIUM HYDROX 2400MG/30ML ORAL SUSPENSION 30 ML CUP PO PRN (11:32)
[2018-09-02] MEDS ORDERED: BISMUTH SUBSALICYLATE 524 MG/30 ML UD PO PRN (11:32)
[2018-09-02] MEDS ORDERED: chlordiazePOXIDE HCL 10 MG CAPSULE PO PRN (11:35)
[2018-09-02] MEDS: cloNIDine HCL 0.1 MG TABLET PO PRN ×2 (12:38→22:32)
[2018-09-02] MEDS: chlordiazePOXIDE HCL 25 MG CAPSULE PO SCH ×2 (12:38→22:32)
[2018-09-02] MEDS: THIAMINE HCL 100 MG TABLET (FP) PO SCH (22:32)
[2018-09-02] MEDS: MELATONIN 5 MG TABLETS PO PRN (22:32)
[2018-09-03] MEDS: chlordiazePOXIDE HCL 25 MG CAPSULE PO SCH ×3 (06:08→22:12)
[2018-09-03] MEDS: PRENATAL VITAMINS W/ FOLIC ACID TABLET (FP) PO SCH (10:56)
[2018-09-03 12:31] LABS: HEMATOCRIT 35.9 % (35.4-49); HEMOGLOBIN 12.3 GM/dL (11.7-16.9); MCH 34.9 pg (25.7-33.7); MCHC 34.3 g/dl (32.0-35.9); MEAN CELL VOLUME 101.6 fl (80-96); MEAN PLT VOLUME 10.5 fl (7.5-11.1); PLATELET COUNT 64 K/MM3 (134-434); RBC 3.53 M/mm3 (4.00-5.60); RDW 17.3 % (11.9-15.9); WHITE BLOOD COUNT 2.3 K/mm3 (4.0-10.0)
[2018-09-03 13:05] LABS: ALBUMIN 2.7 g/dl (3.4-5.0); BILIRUBIN,TOTAL 1.4 mg/dL (0.2-1); CALCIUM 8.2 mg/dL (8.5-10.1); CREATININE 0.8 mg/dL (0.55-1.3); TOT PROT 7.6 g/dl (6.4-8.2)
[2018-09-03 13:17] LABS: POTASSIUM 2.7 mmol/L (3.5-5.1)
[2018-09-03] MEDS ORDERED: POTASSIUM CHLORIDE ORAL LIQUID 20 MEQ/15 ML PO ONE (14:45)
--- NOTE | 2018-09-03 17:00 | PN ---
[facility] CIWA - CIWA Score Nausea/Vomitin-No Nausea/No Vomiting Muscle Tremors: 2 Anxiety: 2 Agitation: 0-Normal Activity Paroxysmal Sweats: No Perspiration Orientation: 2-Disoriented Date<2 days Tacttile Disturbances: 1-Very Mild Itch/Numbness Auditory Disturbances: 0-None Visual Disturbances: 2-Mild Sensitivity Headache: 2-Mild CIWA-Ar Total Score: 11 BHS Progress Note (SOAP) Subjective: Tremors, Fatigue, H/A, Anxious. Objective: PATIENT A & O X 2 (UNCERTAIN ABOUT CURRENT DAY / DATE). IN NO ACUTE DISTRESS. 09/03/18 16:56 Vital Signs Temperature 97.5 F L 09/03/18 13:30 Pulse Rate 85 09/03/18 13:30 Respiratory Rate 18 09/03/18 13:30 Blood Pressure 167/104 H 09/03/18 13:30 O2 Sat by Pulse Oximetry (%) Laboratory Tests 09/03/18 09/03/18 09/03/18 07:00 07:00 07:00 WBC 2.3 L RBC 3.53 L Hgb 12.3 Hct 35.9 MCV 101.6 H MCH 34.9 H MCHC 34.3 RDW 17.3 H Plt Count 64 L D MPV 10.5 Sodium 144 Potassium 2.7 L* Chloride 107 Carbon Dioxide 29 Anion Gap 8 BUN 7.0 Creatinine 0.8 Est GFR (CKD-EPI)AfAm 122.43 Est GFR (CKD-EPI)NonAf 105.63 Random Glucose 87 Calcium 8.2 L Total Bilirubin 1.4 H AST 49 H ALT 19 Alkaline Phosphatase 234 H Total Protein 7.6 Albumin 2.7 L RPR Titer Nonreactive LABS NOTED. PATIENT HAS HAD LOW WBC AND PLATELET LEVELS ON ELEVATED ALK. PHOS. LEVELS ON PREVIOUS ADMISSIONS. 09/03/18 16:59 Assessment: 09/03/18 16:58 WITHDRAWAL SYMPTOMS. THROMBOCYTOPENIA. LEUKOPENIA. ELEVATED ALKALINE PHOSPHATASE LEVEL. HYPERTENSION. 09/03/18 16:59 Plan: CONTINUE DETOX. K-DUR, 40 MEQ PO (LIQUID) X 1 NOW, THEN 20 MEQ PO (LIQUID) BID AFTER. RE-CHECK K LEVEL ON 09/05/2018. RE-CHECK ALK. PHOS. LEVEL ON 09/05/2018 TO SEE IF ANY REDUCTION. CONTINUE TO MONITOR BLOOD PRESSURE.
[2018-09-03] MEDS: cloNIDine HCL 0.1 MG TABLET PO PRN ×2 (17:38→22:13)
[2018-09-03] MEDS: THIAMINE HCL 100 MG TABLET (FP) PO SCH (22:11)
[2018-09-03] MEDS: POTASSIUM CHLORIDE ORAL LIQUID 20 MEQ/15 ML PO SCH (22:12)
[2018-09-03] MEDS: MELATONIN 5 MG TABLETS PO PRN (22:14)
[2018-09-04] MEDS: chlordiazePOXIDE 5 MG CAPSULE PO SCH ×3 (05:52→21:48)
[2018-09-04] MEDS: PRENATAL VITAMINS W/ FOLIC ACID TABLET (FP) PO SCH (10:17)
[2018-09-04] MEDS: POTASSIUM CHLORIDE ORAL LIQUID 20 MEQ/15 ML PO SCH ×2 (10:17→21:33)
[2018-09-04] MEDS: cloNIDine HCL 0.1 MG TABLET PO PRN ×2 (10:18→21:33)
--- NOTE | 2018-09-04 16:53 | PN ---
[facility] CIWA - CIWA Score Nausea/Vomitin-No Nausea/No Vomiting Muscle Tremors: 4-Moderate,w/Arms Extend Anxiety: 3 Agitation: 0-Normal Activity Paroxysmal Sweats: No Perspiration Orientation: 2-Disoriented Date<2 days Tacttile Disturbances: 0-None Auditory Disturbances: 0-None Visual Disturbances: 1-Very Mild Sensitivity Headache: 0-None Present CIWA-Ar Total Score: 10 BHS Progress Note (SOAP) Subjective: Tremors, Fatigue, Anxious. Objective: PATIENT A & O X 2 (UNCERTAIN ABOUT CURRENT DAY / DATE). PATIENT OBSERVED AMBULATING ON UNIT UNASSISTED. IN NO ACUTE DISTRESS. 09/04/18 16:54 Vital Signs Temperature 97.2 F L 09/04/18 13:06 Pulse Rate 81 09/04/18 13:06 Respiratory Rate 18 09/04/18 13:06 Blood Pressure 136/94 09/04/18 13:06 O2 Sat by Pulse Oximetry (%) Laboratory Tests 09/03/18 09/03/18 09/03/18 07:00 07:00 07:00 WBC 2.3 L RBC 3.53 L Hgb 12.3 Hct 35.9 MCV 101.6 H MCH 34.9 H MCHC 34.3 RDW 17.3 H Plt Count 64 L D MPV 10.5 Sodium 144 Potassium 2.7 L* Chloride 107 Carbon Dioxide 29 Anion Gap 8 BUN 7.0 Creatinine 0.8 Est GFR (CKD-EPI)AfAm 122.43 Est GFR (CKD-EPI)NonAf 105.63 Random Glucose 87 Calcium 8.2 L Total Bilirubin 1.4 H AST 49 H ALT 19 Alkaline Phosphatase 234 H Total Protein 7.6 Albumin 2.7 L RPR Titer Nonreactive LABS NOTED. Assessment: 09/04/18 16:55 WITHDRAWAL SYMPTOMS. THROMBOCYTOPENIA. LEUKOPENIA. ELEVATED ALKALINE PHOSPHATASE LEVEL. HYPERBILIRUBINEMIA. HYPERTENSION. HYPOKALEMIA. 09/04/18 16:56 Plan: CONTINUE DETOX. AMLODIPINE, 10 MG PO DAILY (PATIENT REPORTED ON ADMISSION HISTORY OF OUTPATIENT PRESCRIPTION OF THIS MEDICATION). CONTINUE K-DUR. REPEAT K AND ALKALINE PHOSPHATASE LEVELS ORDERED FOR TOMORROW AM.
[2018-09-04] MEDS: amLODIPine BESYLATE 10 MG TABLET (FP) PO SCH (17:58)
[2018-09-04] MEDS: THIAMINE HCL 100 MG TABLET (FP) PO SCH (21:33)
[2018-09-05] MEDS ORDERED: chlordiazePOXIDE HCL 10 MG CAPSULE PO PRN
[2018-09-05] MEDS: chlordiazePOXIDE HCL 10 MG CAPSULE PO SCH ×3 (05:34→22:08)
[2018-09-05] MEDS: PRENATAL VITAMINS W/ FOLIC ACID TABLET (FP) PO SCH (10:35)
[2018-09-05] MEDS: POTASSIUM CHLORIDE ORAL LIQUID 20 MEQ/15 ML PO SCH ×2 (10:35→22:08)
[2018-09-05] MEDS: amLODIPine BESYLATE 10 MG TABLET (FP) PO SCH (10:35)
--- NOTE | 2018-09-05 14:58 | PN ---
[facility] CIWA - CIWA Score Nausea/Vomitin-Mild Nausea/No Vomiting Muscle Tremors: 3 Anxiety: 2 Agitation: 2 Paroxysmal Sweats: 1-Minimal Palms Moist Orientation: 0-Oriented Tacttile Disturbances: 0-None Auditory Disturbances: 0-None Visual Disturbances: 0-None Headache: 0-None Present CIWA-Ar Total Score: 9 S Progress Note (SOAP) Subjective: 48 years old male admitted on 09/02/18 for acute alcohol withdrawal sx management doing well with librium detox regimen low K+ treated with K+ supplement 2.7 up to 3.0 Objective: 09/05/18 15:00 Vital Signs Temperature 97.9 F 09/05/18 13:24 Pulse Rate 66 09/05/18 13:24 Respiratory Rate 18 09/05/18 13:24 Blood Pressure 128/78 09/05/18 13:24 O2 Sat by Pulse Oximetry (%) Laboratory Last Values WBC 2.3 K/mm3 (4.0-10.0) L 09/03/18 07:00 RBC 3.53 M/mm3 (4.00-5.60) L 09/03/18 07:00 Hgb 12.3 GM/dL (11.7-16.9) 09/03/18 07:00 Hct 35.9 % (35.4-49) 09/03/18 07:00 MCV 101.6 fl (80-96) H 09/03/18 07:00 MCH 34.9 pg (25.7-33.7) H 09/03/18 07:00 MCHC 34.3 g/dl (32.0-35.9) 09/03/18 07:00 RDW 17.3 % (11.9-15.9) H 09/03/18 07:00 Plt Count 64 K/MM3 (134-434) L D 09/03/18 07:00 MPV 10.5 fl (7.5-11.1) 09/03/18 07:00 Sodium 144 mmol/L (136-145) 09/03/18 07:00 Potassium 3.0 mmol/L (3.5-5.1) L 09/05/18 07:30 Chloride 107 mmol/L (98-107) 09/03/18 07:00 Carbon Dioxide 29 mmol/L (21-32) 09/03/18 07:00 Anion Gap 8 MMOL/L (8-16) 09/03/18 07:00 BUN 7.0 mg/dL (7-18) 09/03/18 07:00 Creatinine 0.8 mg/dL (0.55-1.3) 09/03/18 07:00 Est GFR (CKD-EPI)AfAm 122.43 09/03/18 07:00 Est GFR (CKD-EPI)NonAf 105.63 09/03/18 07:00 Random Glucose 87 mg/dL (74-106) 09/03/18 07:00 Calcium 8.2 mg/dL (8.5-10.1) L 09/03/18 07:00 Total Bilirubin 1.4 mg/dL (0.2-1) H 09/03/18 07:00 AST 49 U/L (15-37) H 09/03/18 07:00 ALT 19 U/L (13-61) 09/03/18 07:00 Alkaline Phosphatase 210 U/L (45-117) H 09/05/18 07:30 Total Protein 7.6 g/dl (6.4-8.2) 09/03/18 07:00 Albumin 2.7 g/dl (3.4-5.0) L 09/03/18 07:00 RPR Titer Nonreactive (NONREACTIVE) 09/03/18 07:00 lab noted low K+ repeat K+ low wbc Assessment: 09/05/18 15:01 alcohol withdrawal sx Plan: continue alcohol detox
[2018-09-05] MEDS: cloNIDine HCL 0.1 MG TABLET PO PRN (17:24)
[2018-09-05] MEDS: THIAMINE HCL 100 MG TABLET (FP) PO SCH (22:08)
[2018-09-06] MEDS ORDERED: chlordiazePOXIDE HCL 10 MG CAPSULE PO ONE (05:00)
[2018-09-06 09:21] VITALS: BP 136/64; PULSE 74; TEMP 97.7
--- NOTE | 2018-09-06 14:50 | DS ---
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 pharmacy and eat potassium rich food while in alcohol recovery encourage the patient bring in medication list and lab report to primary care provider in the [facility] Pertinent Past History: patient agrees to bring in medication list and lab report to infectious disease specialist for follow up - Physical Exam Results Vital Signs: Vital Signs Temperature 97.7 F 09/06/18 09:19 Pulse Rate 74 09/06/18 09:19 Respiratory Rate 18 09/06/18 09:19 Blood Pressure 136/64 09/06/18 09:19 O2 Sat by Pulse Oximetry (%) Pertinent Admission Physical Exam Findings: alcohol withdrawal sx Laboratory Last Values WBC 2.3 K/mm3 (4.0-10.0) L 09/03/18 07:00 RBC 3.53 M/mm3 (4.00-5.60) L 09/03/18 07:00 Hgb 12.3 GM/dL (11.7-16.9) 09/03/18 07:00 Hct 35.9 % (35.4-49) 09/03/18 07:00 MCV 101.6 fl (80-96) H 09/03/18 07:00 MCH 34.9 pg (25.7-33.7) H 09/03/18 07:00 MCHC 34.3 g/dl (32.0-35.9) 09/03/18 07:00 RDW 17.3 % (11.9-15.9) H 09/03/18 07:00 Plt Count 64 K/MM3 (134-434) L D 09/03/18 07:00 MPV 10.5 fl (7.5-11.1) 09/03/18 07:00 Sodium 144 mmol/L (136-145) 09/03/18 07:00 Potassium 3.1 mmol/L (3.5-5.1) L 09/06/18 07:30 Chloride 107 mmol/L (98-107) 09/03/18 07:00 Carbon Dioxide 29 mmol/L (21-32) 09/03/18 07:00 Anion Gap 8 MMOL/L (8-16) 09/03/18 07:00 BUN 7.0 mg/dL (7-18) 09/03/18 07:00 Creatinine 0.8 mg/dL (0.55-1.3) 09/03/18 07:00 Est GFR (CKD-EPI)AfAm 122.43 09/03/18 07:00 Est GFR (CKD-EPI)NonAf 105.63 09/03/18 07:00 Random Glucose 87 mg/dL (74-106) 09/03/18 07:00 Calcium 8.2 mg/dL (8.5-10.1) L 09/03/18 07:00 Total Bilirubin 1.4 mg/dL (0.2-1) H 09/03/18 07:00 AST 49 U/L (15-37) H 09/03/18 07:00 ALT 19 U/L (13-61) 09/03/18 07:00 Alkaline Phosphatase 210 U/L (45-117) H 09/05/18 07:30 Total Protein 7.6 g/dl (6.4-8.2) 09/03/18 07:00 Albumin 2.7 g/dl (3.4-5.0) L 09/03/18 07:00 RPR Titer Nonreactive (NONREACTIVE) 09/03/18 07:00 lab noted - Treatment Hospital Course: Detox Protocol Followed, Detoxed Safely, Responded well, Discharged Condition Good, Rehab Referral Accepted Patient has Accepted a Rehab Referral to: infectious disease specailist - Medication Discharge Medications: Ambulatory Orders Atovaquone [Mepron Oral Solution -] 750 mg PO BID 02/14/16 Azithromycin [Zithromax 600mg Tablets -] 1,200 mg PO WEEKLY 05/23/16 Mirtazapine [Remeron -] 15 mg PO HS #30 tablet 05/23/16 Risperidone [Risperdal -] 2 mg PO BID #30 tablet 05/23/16 Risperidone [Risperdal] 2 mg PO BID 05/23/16 Triamcinolone 0.025% Ointment [Aristocort 0.025% Ointment -] 1 applic TP TID #1 tube 05/27/16 Amlodipine Besylate [Norvasc -] 10 mg PO DAILY #30 tablet 09/06/18 Potassium Chloride [K-Dur -] 20 meq PO BID #30 tablet.er 09/06/18 Potassium Chloride [Potassium Chloride Oral Liquid] 20 meq PO BID #0 cup - Diagnosis (1) Hypertension Status: Chronic Qualifiers: Hypertension type: unspecified Qualified Code(s): I10 - Essential (primary ) hypertension (2) Alcohol dependence with uncomplicated withdrawal Status: Acute (3) Nicotine dependence Status: Acute Qualifiers: Nicotine product type: cigarettes Substance use status: in withdrawal Qualified Code(s): F17.213 - Nicotine dependence, cigarettes, with withdrawal (4) HIV (human immunodeficiency virus infection) Status: Chronic Qualifiers: HIV symptom status: asymptomatic Qualified Code(s): Z21 - Asymptomatic human immunodeficiency virus [HIV] infection status - AMA Did Patient Leave Against Medical Advice: No
[2018-09-06] MEDS ORDERED: POTASSIUM CHLORIDE TABS 20 MEQ TABLET.ER (FP) PO SCH (22:00)
== END 2018-09-06 09:37 | disposition home or self-care (01) | DRG 774 ==
LOC: YASAS 09:09 → Y3N 11:53
PROVIDERS: ADMIT Surgery; ATTEND Surgery
PROC: HZ2ZZZZ Detoxification Services for Substance Abuse Treatment (ICD-10-PCS; principal; 2018-09-02)
DX: F10.230 Alcohol dependence with withdrawal, uncomplicated (principal); F14.20 Cocaine dependence, uncomplicated; F17.213 Nicotine dependence, cigarettes, with withdrawal; I10 Essential (primary) hypertension; Z21 Asymptomatic human immunodeficiency virus [HIV] infection status; E78.5 Hyperlipidemia, unspecified; D72.819 Decreased white blood cell count, unspecified; D69.6 Thrombocytopenia, unspecified; R74.8 Abnormal levels of other serum enzymes; E80.7 Disorder of bilirubin metabolism, unspecified; Z88.1 Allergy status to other antibiotic agents; Z91.14 Patient's other noncompliance with medication regimen
CPT/HCPCS: 36415; 80053; 84075; 84132; 85027; 86593; J0735

== ENCOUNTER 2018-10-12 14:54 | Inpatient (IN) | payer OTHER ==
[2018-10-12 20:10] VITALS: BMI 29.5
--- NOTE | 2018-10-12 21:32 | HP ---
CIWA Score Nausea/Vomitin-No Nausea/No Vomiting Muscle Tremors: 6 Anxiety: 1-Mildly Anxious Agitation: 0-Normal Activity Paroxysmal Sweats: 3 (Increased facial moisture) Orientation: 2-Disoriented Date<2 days Tacttile Disturbances: 0-None Auditory Disturbances: 0-None Visual Disturbances: 0-None Headache: 0-None Present CIWA-Ar Total Score: 12 - Admission Criteria OAS Guidelines: Admission for Medically Managed Detox: Requires at least one of the followin. CIWA greater than 12 2. Seizures within the past 24 hours 3. Delirium tremens within the past 24 hours 4. Hallucinations within the past 24 hours 5. Acute intervention needed for co occurring medical disorder 6. Acute intervention needed for co occurring psychiatric disorder 7. Severe withdrawal that cannot be handled at a lower level of care (continued vomiting, continued diarrhea, abnormal vital signs) requiring intravenous medication and/or fluids 8. Patient presents the following: CIWA greater than 12, Acute intervention needed for co-occurring med or psych disorder (JERRY: 0.022, HTN, HIV +) Admission Criteria Met: Admission criteria met Admission ROS [facility] Chief Complaint: Here for alcohol detox Allergies/Adverse Reactions: Allergies Allergy/AdvReac Type Severity Reaction Status Date / Time acetaminophen [From Tylenol] Allergy Severe Swelling Verified 09/02/18 10:06 vancomycin Allergy Severe Itching Verified 09/02/18 10:06 History of Present Illness: 48 yo presents w/ alcohol withdrawal seeking detox. Utox: + THC/WAN/BZO JERRY: 0.022 Has alcohol on breath and states last drink yesterday afternoon. Previously at this facility and detoxed. Discharged on 09/06/18. States sober 1 week. States did not f/u w/ discharge plans. W as in [facility] 2.5 wks ago. Alcohol use began at age 21. Currently reports 2 pints/day Cocaine use began at age 21. Currently using $50/day Cannabis use began at age 18. Currently $10/day Denies nicotine use. Denies blackouts, seizures. overdoses. PMHx: HTN (sometimes compliant w/ meds) , HIV+ (non-compliant w/ meds), Elephantiasis (R) leg; Patient informed that HIV meds would not be given as patient is non- compliant w/ medications and the risk of restarting w/o HIV hx and further diagnostic tests would not be best practice. Patient verbalizes an understanding. Reviewed the importance of medication compliance for effective treatment outcome. Encouraged to f/u w/ infection disease provider upon discharge. Encouraged to look for sober housing which might promote stabilization and medication compliance. 09/03/18: RPR: Non-reactive MHHx: Depression. Denies SI/ SHx: Penitentiary system. Unemployed. Denies legal issues. [facility] [place] system down. Unable to check PDMP. Exam Limitations: No Limitations - Ebola screening Have you traveled outside of the country in the last 21 days: No (N) Have you had contact with anyone from an Ebola affected area: No Have you been sick,other than usual withdrawal symptoms: No Do you have a fever: No - Review of Systems Constitutional: Changes in sleep (Difficulty falling asleep - no current prescriptions) EENT: reports: Dental Problems (Missing teeth. No pain. Chews and swallows ok.) Respiratory: reports: No Symptoms reported Cardiac: reports: No Symptoms Reported GI: reports: Blood Streaked Bowels (x 2 weeks. Has not been evaluated. Instructed to notify and show staffif bleeding repeats.) : reports: No Symptoms Reported Musculoskeletal: reports: Other (Achy pain in (R) lower leg increases w/ standing. Walks w/o devices. Increases w/ standing and walking. Improves w/ rest and elevation.) Integumentary: reports: Other (Swollen (R) leg) Neuro: reports: Tremors Endocrine: reports: Increased Thirst Hematology: reports: Anemia (Low RBC) Psychiatric: reports: Judgement Intact, Depressed (Denies thoughts of haming self or others.), Disorientated (Unsure of month, day. Knows year, location) Patient History - Patient Medical History Hx Anemia: No Hx Asthma: No Hx Chronic Obstructive Pulmonary Disease (COPD): No Hx Cancer: No Hx Cardiac Disorders: No Hx Hypertension: Yes Hx Hypercholesterolemia: No Hx Pacemaker: No HX Cerebrovascular Accident: No Hx Seizures: No Hx Dementia: No Hx Diabetes: No Hx Gastrointestinal Disorders: No Hx Liver Disease: No Hx Genitourinary Disorders: No Hx Sexually Transmitted Disorders: Yes Hx Renal Disease (ESRD): No Hx Thyroid Disease: No Hx Human Immunodeficiency Virus (HIV): Yes (SINCE 2004;WAS ON TIVICAY BUT STOPPED;NEW WORKUP RESULT PENDING.) Hx Hepatitis C: No Hx Depression: Yes Hx Suicide Attempt: No Hx Bipolar Disorder: No Hx Schizophrenia: No - Patient Surgical History Past Surgical History: Yes Hx Neurologic Surgery: No Hx Cataract Extraction: No Hx Cardiac Surgery: No Hx Lung Surgery: No Hx Breast Surgery: No Hx Breast Biopsy: No Hx Abdominal Surgery: No Hx Appendectomy: No Hx Cholecystectomy: No Hx Genitourinary Surgery: No Hx Section: No Hx Orthopedic Surgery: Yes (2000- rt leg jesus ) Other Surgical History: Fx mandible LEFT Anesthesia Reaction: No - PPD History Previous Implant?: Yes (TB Gold (QTF) will be obtained. ) Documented Results: Negative w/proof Implanted On Prior R Admission?: Yes Date: 02/16/16 Results: O MM PPD to be Administered?: No - Smoking Cessation Smoking history: Former smoker Have you smoked in the past 12 months: No Cigars Per Day: 0 Hx Chewing Tobacco Use: No Initiated information on smoking cessation: Yes 'Breaking Loose' booklet given: 10/12/18 - Substance & Tx. History Hx Alcohol Use: Yes Hx Substance Use: Yes Substance Use Type: Alcohol, Cocaine, Marijuana Hx Substance Use Treatment: Yes (detox, rehab) - Substances abused Alcohol Substance route: Oral Frequency: Daily Amount used: 6 packs of beer/ 2 pints of vodka. Age of first use: 21 Date of last use: 10/11/18 Cocaine Substance route: Inhalation Frequency: Daily Amount used: 50 dollars Age of first use: 21 Date of last use: 10/11/18 Family Disease History - Family Disease History Family Disease History: Diabetes: Mother ( age 56 ) Admission Physical Exam S - Vital Signs Vital Signs: Vital Signs - 24 hr 10/12/18 19:49 Temperature 97.1 F L Pulse Rate 88 Respiratory 16 Rate Blood Pressure 167/86 - Physical General Appearance: Yes: Moderate Distress, Alcohol on Breath (JERRY: 0.022), Tremorous (Gross tremors at rest), Sweating (Increased facial moisture), Other ( BMI does not reflect the patients general body weight as patient has severe lymphedema of (R) lower leg. The rest of the patient's body weight/make-up is wnl.) HEENTM: Yes: Hearing grossly Normal, Normocephalic, Normal Voice, JAJA, Pharynx Normal Respiratory: Yes: Lungs Clear, Normal Breath Sounds, No Respiratory Distress Neck: Yes: No masses,lesions,Nodules, Supple Breast: Yes: Breast Exam Deferred Cardiology: Yes: Regular Rhythm, Regular Rate (HR: 92), S1, S2, Murmur Abdominal: Yes: Non Tender, Soft, Increased Bowel Sounds Genitourinary: Yes: Within Normal Limits Back: Yes: Normal Inspection Musculoskeletal: Yes: Other (Severe swelling/lymphedema (R) leg, toes to below knee.) Extremities: Yes: Normal Capillary Refill, Tremors (Gross tremors at rest) Neurological: Yes: 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 Pedal pulse non-palp. Skin color and warmth equal to (L) leg. 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 (6) Hypertension Current Visit: No Status: Chronic Qualifiers: Hypertension type: unspecified Qualified Code(s): I10 - Essential (primary ) hypertension (7) Rash, skin Current Visit: Yes Status: Chronic Comment: Psoriasis facial area (8) Psoriasis Current Visit: Yes Status: Chronic (9) Cardiac murmur Current Visit: Yes Status: Suspected (10) Cannabis dependence, uncomplicated Current Visit: Yes Status: Chronic Cleared for Admission S - Detox or Rehab [facility] Level of Care: Medically Managed Detox Regimen/Protocol: Librium Claeared for Rehab Admission: No Breathalyzer - Breathalyzer Breathalyzer: 0.022 Urine Drug Screen - Test Device Lot number: [id number] Expiration date: 07/06/20 - Control Is test valid?: Yes - Results Drug screen NEGATIVE: No Urine drug screen results: THC-Marijuana, WAN-Cocaine, BZO-Benzodiazepines Inpatient Rehab Admission - Rehab Decision to Admit Inpatient rehab admission?: No
[2018-10-12] MEDS ORDERED: BISMUTH SUBSALICYLATE 524 MG/30 ML UD PO PRN (22:22)
[2018-10-12] MEDS ORDERED: METHOCARBAMOL 500 MG TABLET PO PRN (22:22)
[2018-10-12] MEDS ORDERED: IBUPROFEN 400 MG TABLET (FP) PO PRN (22:22)
[2018-10-12] MEDS ORDERED: MAGNESIUM CITRATE 300 ML BOTTLE PO PRN (22:22)
[2018-10-12] MEDS ORDERED: chlordiazePOXIDE HCL 25 MG CAPSULE PO PRN (22:22)
[2018-10-12] MEDS ORDERED: MAGNESIUM HYDROX 2400MG/30ML ORAL SUSPENSION 30 ML CUP PO PRN (22:22)
[2018-10-12] MEDS ORDERED: MENTHOL/PHENOL 1 EACH UD MM PRN (22:22)
[2018-10-12] MEDS ORDERED: MAG HYDROX/AL HYDROX/SIMETH 30 ML UNIT-DOSE CUP PO PRN (22:22)
[2018-10-12] MEDS: chlordiazePOXIDE HCL 25 MG CAPSULE PO SCH (23:32)
[2018-10-12] MEDS ORDERED: cloNIDine HCL 0.1 MG TABLET PO ONE (23:34)
[2018-10-13] MEDS: chlordiazePOXIDE HCL 25 MG CAPSULE PO SCH ×4 (05:52→22:06)
[2018-10-13] MEDS: TRIAMCINOLONE ACET 0.025% OINTMENT 15 GM TUBE TP SCH ×3 (07:48→22:47)
[2018-10-13] MEDS: PRENATAL VITAMINS W/ FOLIC ACID TABLET (FP) PO SCH (10:18)
[2018-10-13] MEDS: amLODIPine BESYLATE 10 MG TABLET (FP) PO SCH (10:18)
[2018-10-13 10:19] LABS: HEMATOCRIT 35.6 % (35.4-49); HEMOGLOBIN 12.2 GM/dL (11.7-16.9); MCH 34.1 pg (25.7-33.7); MCHC 34.3 g/dl (32.0-35.9); MEAN CELL VOLUME 99.4 fl (80-96); MEAN PLT VOLUME 10.4 fl (7.5-11.1); PLATELET COUNT 70 K/MM3 (134-434); RBC 3.58 M/mm3 (4.00-5.60); RDW 13.7 % (11.9-15.9); WHITE BLOOD COUNT 2.5 K/mm3 (4.0-10.0)
[2018-10-13 10:25] LABS: ALBUMIN 2.7 g/dl (3.4-5.0); BILIRUBIN,TOTAL 0.9 mg/dL (0.2-1); BLOOD UREA NITROGEN 10.3 mg/dL (7-18); CREATININE 0.9 mg/dL (0.55-1.3); POTASSIUM 3.6 mmol/L (3.5-5.1); TOT PROT 7.6 g/dl (6.4-8.2)
--- NOTE | 2018-10-13 10:45 | CONSULT ---
[facility] Psychiatric Consult - Data Date of interview: 10/13/18 Admission source: [facility] Identifying data: Readmission to [facility] for this 48 y/o AA male self- referred for detoxification (alcohol, cannabis, cocaine). Patient is single, a father of two, homeless (long term), unemployed and supported by relatives (lost his SSI benefits). Substance Abuse History: Discussed with the patient. Details concordant with current [facility] report as follows : Smoking history: Former smoker. Have you smoked in the past 12 months: No. Cigars Per Day: 0. Hx Chewing Tobacco Use: No. Initiated information on smoking cessation: Yes. 'Breaking Loose' booklet given: 10/12/18. - Substance & Tx. History. Hx Alcohol Use: Yes. Hx Substance Use: Yes. Substance Use Type: Alcohol, Cocaine, Marijuana. Hx Substance Use Treatment: Yes (detox, rehab). - Substances abused. Alcohol. Substance route: Oral. Frequency: Daily. Amount used: 6 packs of beer/ 2 pints of vodka. Age of first use: 21. Date of last use: 10/11/18. Cocaine. Substance route: Inhalation. Frequency: Daily. Amount used: 50 dollars. Age of first use: 21. Date of last use: 10/11/18 Medical History: Medical profile is remarkable for HIV infection since 2004, hypertension, lymphedema (elephantiasis of right leg), history of fracture of left mandible and distant history of orthosurgery on right leg (haerdware removed in 2008). Psychiatric History: Patient endorses a history of three psychiatric hospitalizations ([facility]). Diagnosed with Schizoaffective Disorder. Mr Garcia states that he has dropped out of psychiatric OPD care for months. " I don't need those medications. I feel fine without them." He used to be prescribed risperdal and mirtazapine. Remote history of a suicide attempt via overdose with medications (years ago). Physical/Sexual Abuse/Trauma History: Patient denies. Additional Comment: Urine drug screen results: THC-Marijuana, WAN-Cocaine, BZO- Benzodiazepines. Noted. Mental Status Exam - Mental Status Exam Alert and Oriented to: Time, Place, Person Cognitive Function: Good Patient Appearance: Unkempt, Disheveled (noted lymphedema of right leg) Mood: Withdrawn Affect: Mood Congruent, Normal Range Patient Behavior: Fatigued, Cooperative Speech Pattern: Clear, Appropriate Voice Loudness: Normal Thought Process: Goal Oriented Thought Disorder: Not Present Hallucinations: Denies Suicidal Ideation: Denies Homicidal Ideation: Denies Insight/Judgement: Poor Sleep: Well Appetite: Good Muscle strength/Tone: Normal Gait/Station: Other (slow but steady) Psychiatric Findings - Problem List (Hasty 1, 2,3) (1) Alcohol dependence with uncomplicated withdrawal Current Visit: Yes Status: Acute (2) Cannabis dependence, uncomplicated Current Visit: Yes Status: Chronic (3) Cocaine dependence, uncomplicated Current Visit: Yes Status: Chronic (4) Schizoaffective disorder Current Visit: Yes Status: Suspected Comment: By history. - Initial Treatment Plan Initial Treatment Plan: Psychoeducation. Sleep hygiene. Detoxification. AA meetings. Groups. Support. Observation.
--- NOTE | 2018-10-13 14:30 | PN ---
[facility] CIWA - CIWA Score Nausea/Vomitin-No Nausea/No Vomiting Muscle Tremors: 2 Anxiety: 3 Agitation: 0-Normal Activity Paroxysmal Sweats: 3 Orientation: 0-Oriented Tacttile Disturbances: 2-Mild Itch/Numbness/Burn Auditory Disturbances: 2-Mild Harshness/Frighten Visual Disturbances: 2-Mild Sensitivity Headache: 0-None Present CIWA-Ar Total Score: 14 S Progress Note (SOAP) Subjective: Anxious, Sweating, Fatigue, Tremors. Objective: PATIENT A & O X 3. IN NO ACUTE DISTRESS. 10/13/18 14:26 Vital Signs Temperature 98.6 F 10/13/18 13:22 Pulse Rate 81 10/13/18 13:22 Respiratory Rate 18 10/13/18 13:22 Blood Pressure 135/71 10/13/18 13:22 O2 Sat by Pulse Oximetry (%) Laboratory Tests 10/13/18 10/13/18 08:00 08:00 WBC 2.5 L RBC 3.58 L Hgb 12.2 Hct 35.6 MCV 99.4 H MCH 34.1 H MCHC 34.3 RDW 13.7 D Plt Count 70 L MPV 10.4 Sodium 140 Potassium 3.6 Chloride 106 Carbon Dioxide 28 Anion Gap 6 L BUN 10.3 Creatinine 0.9 Est GFR (CKD-EPI)AfAm 116.65 Est GFR (CKD-EPI)NonAf 100.64 Random Glucose 91 Calcium 8.0 L Total Bilirubin 0.9 AST 72 H ALT 31 Alkaline Phosphatase 188 H Total Protein 7.6 Albumin 2.7 L LABS NOTED. PATIENT HAS HAD ELEVATED AST AND ALKALINE PHOSPHATASE LEVELS ON PREVIOUS ADMISSIONS. PATIENT HAS HAD LOW WBC, PLATELET, AND CALCIUM LEVELS ON PREVIOUS ADMISSIONS. 10/13/18 14:29 Assessment: 10/13/18 14:26 WITHDRAWAL SYMPTOMS. THROMBOCYTOPENIA. HYPOCALCEMIA. LEUKOPENIA. ELEVATED AST LEVEL. ELEVATED ALKALINE PHOSPHATSE LEVEL. 10/13/18 14:31 Plan: CONTINUE DETOX. OSCAL, 500 MG PO BID FOR LOW CA LEVEL NOTED DETOX ADMISSION LABORATORY ASSESSMENT.
[2018-10-13] MEDS: THIAMINE HCL 100 MG TABLET (FP) PO SCH (22:06)
[2018-10-13] MEDS: CALCIUM 500MG/VIT-D 200 UNITS COMBO TABLET (FP) PO SCH (22:06)
[2018-10-13] MEDS: MELATONIN 5 MG TABLETS PO PRN (22:08)
[2018-10-14] MEDS: chlordiazePOXIDE HCL 25 MG CAPSULE PO SCH ×4 (05:28→23:09)
[2018-10-14] MEDS: TRIAMCINOLONE ACET 0.025% OINTMENT 15 GM TUBE TP SCH ×3 (07:00→23:10)
[2018-10-14] MEDS: PRENATAL VITAMINS W/ FOLIC ACID TABLET (FP) PO SCH (10:39)
[2018-10-14] MEDS: amLODIPine BESYLATE 10 MG TABLET (FP) PO SCH (10:40)
[2018-10-14] MEDS: CALCIUM 500MG/VIT-D 200 UNITS COMBO TABLET (FP) PO SCH ×2 (10:40→23:33)
--- NOTE | 2018-10-14 13:00 | PN ---
[facility] CIWA - CIWA Score Nausea/Vomitin-Mild Nausea/No Vomiting Muscle Tremors: 4-Moderate,w/Arms Extend Anxiety: 2 Agitation: 3 Paroxysmal Sweats: 1-Minimal Palms Moist Orientation: 0-Oriented Tacttile Disturbances: 0-None Auditory Disturbances: 0-None Visual Disturbances: 0-None Headache: 0-None Present CIWA-Ar Total Score: 11 S Progress Note (SOAP) Subjective: 48 years old male 2nd patient [facility] admission since 2019 was admitted on 10/12/18 for alcohol withdrawal sx management doing well with librium detox regimen mild tremor and joints aches seen by psychiatrist no pharmacology intervention Objective: 10/14/18 13:02 Vital Signs Temperature 97.1 F L 10/14/18 09:47 Pulse Rate 79 10/14/18 09:47 Respiratory Rate 18 10/14/18 09:47 Blood Pressure 122/79 10/14/18 09:47 O2 Sat by Pulse Oximetry (%) Laboratory Last Values WBC 2.5 K/mm3 (4.0-10.0) L 10/13/18 08:00 RBC 3.58 M/mm3 (4.00-5.60) L 10/13/18 08:00 Hgb 12.2 GM/dL (11.7-16.9) 10/13/18 08:00 Hct 35.6 % (35.4-49) 10/13/18 08:00 MCV 99.4 fl (80-96) H 10/13/18 08:00 MCH 34.1 pg (25.7-33.7) H 10/13/18 08:00 MCHC 34.3 g/dl (32.0-35.9) 10/13/18 08:00 RDW 13.7 % (11.9-15.9) D 10/13/18 08:00 Plt Count 70 K/MM3 (134-434) L 10/13/18 08:00 MPV 10.4 fl (7.5-11.1) 10/13/18 08:00 Sodium 140 mmol/L (136-145) 10/13/18 08:00 Potassium 3.6 mmol/L (3.5-5.1) 10/13/18 08:00 Chloride 106 mmol/L (98-107) 10/13/18 08:00 Carbon Dioxide 28 mmol/L (21-32) 10/13/18 08:00 Anion Gap 6 MMOL/L (8-16) L 10/13/18 08:00 BUN 10.3 mg/dL (7-18) 10/13/18 08:00 Creatinine 0.9 mg/dL (0.55-1.3) 10/13/18 08:00 Est GFR (CKD-EPI)AfAm 116.65 10/13/18 08:00 Est GFR (CKD-EPI)NonAf 100.64 10/13/18 08:00 Random Glucose 91 mg/dL (74-106) 10/13/18 08:00 Calcium 8.0 mg/dL (8.5-10.1) L 10/13/18 08:00 Total Bilirubin 0.9 mg/dL (0.2-1) 10/13/18 08:00 AST 72 U/L (15-37) H 10/13/18 08:00 ALT 31 U/L (13-61) 10/13/18 08:00 Alkaline Phosphatase 188 U/L (45-117) H 10/13/18 08:00 Total Protein 7.6 g/dl (6.4-8.2) 10/13/18 08:00 Albumin 2.7 g/dl (3.4-5.0) L 10/13/18 08:00 lab noted long history of hiv with low wbc 10/14/18 13:03 Assessment: 10/14/18 13:04 alcohol withdrawal sx Plan: continue librium detox regimen
--- NOTE | 2018-10-14 17:17 | EKG ---
Test Reason : Blood Pressure : / mmHG Vent. Rate : 069 BPM Atrial Rate : 069 BPM P-R Int : 154 ms QRS Dur : 086 ms QT Int : 426 ms P-R-T Axes : 052 067 042 degrees QTc Int : 456 ms NORMAL SINUS RHYTHM WITH SINUS ARRHYTHMIA NORMAL ECG WHEN COMPARED WITH ECG OF 23-MAY-2016 14:09, NO SIGNIFICANT CHANGE WAS FOUND Confirmed by JUDY PAREDES MD ([id number]) on 10/14/2018 5:17:33 PM Referred By: YORDY BEDOYA Confirmed By:JUDY PAREDES MD
[2018-10-14] MEDS: THIAMINE HCL 100 MG TABLET (FP) PO SCH (23:09)
[2018-10-14] MEDS: MELATONIN 5 MG TABLETS PO PRN (23:09)
[2018-10-15] MEDS ORDERED: chlordiazePOXIDE HCL 10 MG CAPSULE PO PRN
[2018-10-15] MEDS: chlordiazePOXIDE HCL 10 MG CAPSULE PO SCH ×4 (05:18→22:15)
[2018-10-15] MEDS: TRIAMCINOLONE ACET 0.025% OINTMENT 15 GM TUBE TP SCH ×3 (05:18→22:14)
--- NOTE | 2018-10-15 08:51 | PN ---
[facility] Progress Note (SOAP) Subjective: received nurse requests patient needs ekg order on 10/13/18 0928am
--- NOTE | 2018-10-15 09:08 | PN ---
[facility] CIWA - CIWA Score Nausea/Vomitin-Mild Nausea/No Vomiting Muscle Tremors: 3 Anxiety: 2 Agitation: 2 Paroxysmal Sweats: 1-Minimal Palms Moist Orientation: 0-Oriented Tacttile Disturbances: 0-None Auditory Disturbances: 0-None Visual Disturbances: 0-None Headache: 0-None Present CIWA-Ar Total Score: 9 S Progress Note (SOAP) Subjective: doing well with librium detox regimen ate 70% breakfast resting on bed comfortably alert speech clearly less tremor Objective: 10/15/18 09:08 Vital Signs Temperature 97.4 F L 10/15/18 06:00 Pulse Rate 73 10/15/18 06:00 Respiratory Rate 18 10/15/18 06:00 Blood Pressure 125/85 10/15/18 06:00 O2 Sat by Pulse Oximetry (%) Laboratory Last Values WBC 2.5 K/mm3 (4.0-10.0) L 10/13/18 08:00 RBC 3.58 M/mm3 (4.00-5.60) L 10/13/18 08:00 Hgb 12.2 GM/dL (11.7-16.9) 10/13/18 08:00 Hct 35.6 % (35.4-49) 10/13/18 08:00 MCV 99.4 fl (80-96) H 10/13/18 08:00 MCH 34.1 pg (25.7-33.7) H 10/13/18 08:00 MCHC 34.3 g/dl (32.0-35.9) 10/13/18 08:00 RDW 13.7 % (11.9-15.9) D 10/13/18 08:00 Plt Count 70 K/MM3 (134-434) L 10/13/18 08:00 MPV 10.4 fl (7.5-11.1) 10/13/18 08:00 Sodium 140 mmol/L (136-145) 10/13/18 08:00 Potassium 3.6 mmol/L (3.5-5.1) 10/13/18 08:00 Chloride 106 mmol/L (98-107) 10/13/18 08:00 Carbon Dioxide 28 mmol/L (21-32) 10/13/18 08:00 Anion Gap 6 MMOL/L (8-16) L 10/13/18 08:00 BUN 10.3 mg/dL (7-18) 10/13/18 08:00 Creatinine 0.9 mg/dL (0.55-1.3) 10/13/18 08:00 Est GFR (CKD-EPI)AfAm 116.65 10/13/18 08:00 Est GFR (CKD-EPI)NonAf 100.64 10/13/18 08:00 Random Glucose 91 mg/dL (74-106) 10/13/18 08:00 Calcium 8.0 mg/dL (8.5-10.1) L 10/13/18 08:00 Total Bilirubin 0.9 mg/dL (0.2-1) 10/13/18 08:00 AST 72 U/L (15-37) H 10/13/18 08:00 ALT 31 U/L (13-61) 10/13/18 08:00 Alkaline Phosphatase 188 U/L (45-117) H 10/13/18 08:00 Total Protein 7.6 g/dl (6.4-8.2) 10/13/18 08:00 Albumin 2.7 g/dl (3.4-5.0) L 10/13/18 08:00 10/15/18 09:08lab noted patient agrees to share lab report with infectious disease specialist upon discharged from detox Assessment: 10/15/18 09:09 alcohol withdrawal sx Plan: continue librium detox regimen
[2018-10-15] MEDS: PRENATAL VITAMINS W/ FOLIC ACID TABLET (FP) PO SCH (10:09)
[2018-10-15] MEDS: CALCIUM 500MG/VIT-D 200 UNITS COMBO TABLET (FP) PO SCH ×2 (10:09→22:15)
[2018-10-15] MEDS: amLODIPine BESYLATE 10 MG TABLET (FP) PO SCH (10:09)
--- NOTE | 2018-10-15 11:34 | EKG ---
Test Reason : Blood Pressure : / mmHG Vent. Rate : 082 BPM Atrial Rate : 082 BPM P-R Int : 152 ms QRS Dur : 096 ms QT Int : 420 ms P-R-T Axes : 052 048 027 degrees QTc Int : 490 ms NORMAL SINUS RHYTHM PROLONGED QT ABNORMAL ECG WHEN COMPARED WITH ECG OF 12-OCT-2018 23:02, NO SIGNIFICANT CHANGE WAS FOUND Confirmed by CAT GALICIA MD ([id number]) on 10/15/2018 11:33:39 AM Referred By: Confirmed By:CAT GALICIA MD
[2018-10-15] MEDS: MELATONIN 5 MG TABLETS PO PRN (22:15)
[2018-10-15] MEDS: THIAMINE HCL 100 MG TABLET (FP) PO SCH (22:15)
[2018-10-16] MEDS: chlordiazePOXIDE HCL 10 MG CAPSULE PO SCH ×2 (07:15→17:22)
[2018-10-16] MEDS: TRIAMCINOLONE ACET 0.025% OINTMENT 15 GM TUBE TP SCH ×3 (07:16→23:04)
--- NOTE | 2018-10-16 09:05 | PN ---
[facility] CIWA - CIWA Score Nausea/Vomitin-No Nausea/No Vomiting Muscle Tremors: 2 Anxiety: 2 Agitation: 2 Paroxysmal Sweats: No Perspiration Orientation: 0-Oriented Tacttile Disturbances: 0-None Auditory Disturbances: 0-None Visual Disturbances: 0-None Headache: 0-None Present CIWA-Ar Total Score: 6 S Progress Note (SOAP) Subjective: doing well with libirum detox regimen sitting on the bed eating breakfast no trouble chewing swallowing tolerate food and fluid well feeling better aftercare with staff prefers [facility] for [facility] recovery Objective: 10/16/18 09:09 Vital Signs Temperature 98.9 F 10/15/18 21:16 Pulse Rate 79 10/15/18 21:16 Respiratory Rate 18 10/16/18 03:30 Blood Pressure 137/88 10/15/18 21:16 O2 Sat by Pulse Oximetry (%) Laboratory Last Values WBC 2.5 K/mm3 (4.0-10.0) L 10/13/18 08:00 RBC 3.58 M/mm3 (4.00-5.60) L 10/13/18 08:00 Hgb 12.2 GM/dL (11.7-16.9) 10/13/18 08:00 Hct 35.6 % (35.4-49) 10/13/18 08:00 MCV 99.4 fl (80-96) H 10/13/18 08:00 MCH 34.1 pg (25.7-33.7) H 10/13/18 08:00 MCHC 34.3 g/dl (32.0-35.9) 10/13/18 08:00 RDW 13.7 % (11.9-15.9) D 10/13/18 08:00 Plt Count 70 K/MM3 (134-434) L 10/13/18 08:00 MPV 10.4 fl (7.5-11.1) 10/13/18 08:00 Sodium 140 mmol/L (136-145) 10/13/18 08:00 Potassium 3.6 mmol/L (3.5-5.1) 10/13/18 08:00 Chloride 106 mmol/L (98-107) 10/13/18 08:00 Carbon Dioxide 28 mmol/L (21-32) 10/13/18 08:00 Anion Gap 6 MMOL/L (8-16) L 10/13/18 08:00 BUN 10.3 mg/dL (7-18) 10/13/18 08:00 Creatinine 0.9 mg/dL (0.55-1.3) 10/13/18 08:00 Est GFR (CKD-EPI)AfAm 116.65 10/13/18 08:00 Est GFR (CKD-EPI)NonAf 100.64 10/13/18 08:00 Random Glucose 91 mg/dL (74-106) 10/13/18 08:00 Calcium 8.0 mg/dL (8.5-10.1) L 10/13/18 08:00 Total Bilirubin 0.9 mg/dL (0.2-1) 10/13/18 08:00 AST 72 U/L (15-37) H 10/13/18 08:00 ALT 31 U/L (13-61) 10/13/18 08:00 Alkaline Phosphatase 188 U/L (45-117) H 10/13/18 08:00 Total Protein 7.6 g/dl (6.4-8.2) 10/13/18 08:00 Albumin 2.7 g/dl (3.4-5.0) L 10/13/18 08:00 lab noted 10/16/18 09:10 bring lab report to infectious disease specialist for low wbc follow up Assessment: 10/16/18 09:11 alcohol withdrawal sx Plan: continue librium detox
[2018-10-16] MEDS: amLODIPine BESYLATE 10 MG TABLET (FP) PO SCH (10:13)
[2018-10-16] MEDS: PRENATAL VITAMINS W/ FOLIC ACID TABLET (FP) PO SCH (10:13)
[2018-10-16] MEDS: CALCIUM 500MG/VIT-D 200 UNITS COMBO TABLET (FP) PO SCH ×2 (10:13→22:06)
[2018-10-16] MEDS: MELATONIN 5 MG TABLETS PO PRN (22:05)
[2018-10-16] MEDS: THIAMINE HCL 100 MG TABLET (FP) PO SCH (22:05)
[2018-10-17] MEDS ORDERED: chlordiazePOXIDE HCL 10 MG CAPSULE PO ONE (05:00)
[2018-10-17] MEDS: TRIAMCINOLONE ACET 0.025% OINTMENT 15 GM TUBE TP SCH (05:50)
[2018-10-17 06:23] VITALS: BP 139/82; PULSE 76; TEMP 97.7
--- NOTE | 2018-10-17 09:07 | DS ---
[facility] Detox Discharge Summary Admission Date: 10/12/18 Discharge Date: 10/17/18 - History Present History: Alcohol Dependence Additional Comments: 48 years old male admitted on 10/12/18 for alcohol withdrawal sx management did well with librium detox regiment no complication through out the detox stay seen by psychiatrist consultation appreciated no medical treatment patient may return to [facility] service for depakote and risperidal patient is alert oriented x 3 prefers to go to [facility] for alcohol recovery medical history of hypertension hiv bipolar II and hyper lipidemia cardiacl S1S2 regular rate rhythm ekg indicates prolong QT asymptomatic discuss 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 respiratory clear lung sound bilaterally on auscultation abdomen soft no rebound tenderness Pertinent Past History: multiple patient [facility] admission since 2010 for alcohol detox - Physical Exam Results Vital Signs: Vital Signs Temperature 97.7 F 10/17/18 06:23 Pulse Rate 76 10/17/18 06:23 Respiratory Rate 18 10/17/18 06:23 Blood Pressure 139/82 10/17/18 06:23 O2 Sat by Pulse Oximetry (%) Pertinent Admission Physical Exam Findings: alcohol withdrawal sx Laboratory Last Values WBC 2.5 K/mm3 (4.0-10.0) L 10/13/18 08:00 RBC 3.58 M/mm3 (4.00-5.60) L 10/13/18 08:00 Hgb 12.2 GM/dL (11.7-16.9) 10/13/18 08:00 Hct 35.6 % (35.4-49) 10/13/18 08:00 MCV 99.4 fl (80-96) H 10/13/18 08:00 MCH 34.1 pg (25.7-33.7) H 10/13/18 08:00 MCHC 34.3 g/dl (32.0-35.9) 10/13/18 08:00 RDW 13.7 % (11.9-15.9) D 10/13/18 08:00 Plt Count 70 K/MM3 (134-434) L 10/13/18 08:00 MPV 10.4 fl (7.5-11.1) 10/13/18 08:00 Sodium 140 mmol/L (136-145) 10/13/18 08:00 Potassium 3.6 mmol/L (3.5-5.1) 10/13/18 08:00 Chloride 106 mmol/L (98-107) 10/13/18 08:00 Carbon Dioxide 28 mmol/L (21-32) 10/13/18 08:00 Anion Gap 6 MMOL/L (8-16) L 10/13/18 08:00 BUN 10.3 mg/dL (7-18) 10/13/18 08:00 Creatinine 0.9 mg/dL (0.55-1.3) 10/13/18 08:00 Est GFR (CKD-EPI)AfAm 116.65 10/13/18 08:00 Est GFR (CKD-EPI)NonAf 100.64 10/13/18 08:00 Random Glucose 91 mg/dL (74-106) 10/13/18 08:00 Calcium 8.0 mg/dL (8.5-10.1) L 10/13/18 08:00 Total Bilirubin 0.9 mg/dL (0.2-1) 10/13/18 08:00 AST 72 U/L (15-37) H 10/13/18 08:00 ALT 31 U/L (13-61) 10/13/18 08:00 Alkaline Phosphatase 188 U/L (45-117) H 10/13/18 08:00 Total Protein 7.6 g/dl (6.4-8.2) 10/13/18 08:00 Albumin 2.7 g/dl (3.4-5.0) L 10/13/18 08:00 Vital Signs Temperature 97.7 F 10/17/18 06:23 Pulse Rate 76 10/17/18 06:23 Respiratory Rate 18 10/17/18 06:23 Blood Pressure 139/82 10/17/18 06:23 O2 Sat by Pulse Oximetry (%) lab noted low wbc follow up with infectious disease specialist bp within acceptable range - Treatment Hospital Course: Detox Protocol Followed, Detoxed Safely, Responded well, Discharged Condition Good, Rehab Referral Accepted Patient has Accepted a Re[facility] Referral to: [facility] - Medication Discharge Medications: Ambulatory Orders Atovaquone [Mepron Oral Solution -] 750 mg PO BID 02/14/16 Mirtazapine [Remeron -] 15 mg PO HS #30 tablet 05/23/16 Risperidone [Risperdal -] 2 mg PO BID #30 tablet 05/23/16 Triamcinolone 0.025% Ointment [Aristocort 0.025% Ointment -] 1 applic TP TID #1 tube 05/27/16 Dolutegravir Sodium [Tivicay] 25 mg PO DAILY 10/12/18 Emtricitabine/Tenofovir [Truvada -] 1 tablet PO DAILY 10/12/18 Amlodipine Besylate [Norvasc -] 10 mg PO DAILY #30 tablet 10/16/18 - Diagnosis (1) Bipolar II disorder Current Visit: Yes Status: Suspected (2) Alcohol dependence with uncomplicated withdrawal Current Visit: Yes Status: Acute (3) Nicotine dependence Current Visit: Yes Status: Acute Qualifiers: Nicotine product type: cigarettes Substance use status: in withdrawal Qualified Code(s): F17.213 - Nicotine dependence, cigarettes, with withdrawal (4) HIV (human immunodeficiency virus infection) Current Visit: Yes Status: Chronic Qualifiers: HIV symptom status: asymptomatic Qualified Code(s): Z21 - Asymptomatic human immunodeficiency virus [HIV] infection status (5) Hypertension Current Visit: Yes Status: Chronic Qualifiers: Hypertension type: unspecified Qualified Code(s): I10 - Essential (primary ) hypertension - AMA Did Patient Leave Against Medical Advice: No CIWA Score - CIWA Score Nausea/Vomitin-No Nausea/No Vomiting Muscle Tremors: 1-None Visible, but [place] Anxiety: 1-Mildly Anxious Agitation: 0-Normal Activity Paroxysmal Sweats: No Perspiration Orientation: 0-Oriented Tacttile Disturbances: 0-None Auditory Disturbances: 0-None Visual Disturbances: 0-None Headache: 0-None Present CIWA-Ar Total Score: 2
[2018-10-17] MEDS: PRENATAL VITAMINS W/ FOLIC ACID TABLET (FP) PO SCH (10:20)
[2018-10-17] MEDS: CALCIUM 500MG/VIT-D 200 UNITS COMBO TABLET (FP) PO SCH (10:20)
[2018-10-17] MEDS: amLODIPine BESYLATE 10 MG TABLET (FP) PO SCH (10:20)
== END 2018-10-17 09:35 | disposition home or self-care (01) | DRG 774 ==
LOC: YASAS 14:54 → Y3N 23:10
PROVIDERS: ADMIT Surgery; ATTEND Surgery
PROC: HZ2ZZZZ Detoxification Services for Substance Abuse Treatment (ICD-10-PCS; principal; 2018-10-12)
DX: F10.230 Alcohol dependence with withdrawal, uncomplicated (principal); F14.20 Cocaine dependence, uncomplicated; F12.20 Cannabis dependence, uncomplicated; F17.213 Nicotine dependence, cigarettes, with withdrawal; F31.81 Bipolar II disorder; F25.9 Schizoaffective disorder, unspecified; I10 Essential (primary) hypertension; Z21 Asymptomatic human immunodeficiency virus [HIV] infection status; D69.6 Thrombocytopenia, unspecified; D72.819 Decreased white blood cell count, unspecified; E83.51 Hypocalcemia; R74.0 Nonspecific elevation of levels of transaminase and lactic acid dehydrogenase [LDH]; I89.0 Lymphedema, not elsewhere classified; R21 Rash and other nonspecific skin eruption; L40.9 Psoriasis, unspecified; R01.1 Cardiac murmur, unspecified; Z91.14 Patient's other noncompliance with medication regimen; Z88.1 Allergy status to other antibiotic agents; Z88.6 Allergy status to analgesic agent
CPT/HCPCS: 36415; 80053; 85027; 93005; 93010; J0735